=== PATIENT | female | born 1940 | race Caucasian/White ===

== ENCOUNTER 2016-12-30 11:43 | Emergency (ER) | payer MEDICARE, OTHER ==
[~2016-12-30] VITALS: Ht 160 cm; Wt 62.6 kg
[~2016-12-30 11:43] MED LIST: ALEN70TA3 PO; AMLO10TA4 PO; CLON0.1T PO; IBUP200T43 PO; METO50TA2 PO; OMEG-33 PO; QUIN40TA PO; WARF2TAB PO; WARF3TAB54 PO; WARF4TAB7 PO; decadron PO
[2016-12-30 12:05] VITALS: BP 105/65
--- NOTE | 2016-12-30 12:50 | RAD ---
Right foot, 3 views, 12/30/2016: History: Great toe pain There is mild spurring at the first MTP joint. No acute fracture or dislocation is identified. There is mild subcutaneous edema. IMPRESSION: No acute bony abnormality is detected.
[2016-12-30] MEDS ORDERED: HYDR-971 PO (13:11)
--- NOTE | 2016-12-30 13:11 | PHYS DOC ---
Past History Past Medical History: CAD Past Surgical History: Pacemaker Smoking: Non-smoker Alcohol Use: None Drug Use: None Adult General Chief Complaint Chief Complaint: FOOT INJURY PAIN HPI HPI Patient is a 76 year old female who presents with right foot pain. She states 2 days ago she felt sudden sharp pain in 1st metatarsal & toe while walking. She has pain with weight bearing. Reports mild swelling. Denies fevers, warmth. No previous fracture or injury. 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 Review of Systems Review of Systems Constitutional: Denies fever or chills Respiratory: Denies cough or shortness of breath Cardiovascular: Denies chest pain GI: Denies abdominal pain Musculoskeletal: Reports foot pain Integument: Denies rash Neurologic: Denies headache Allergies Allergies Allergies Coded Allergies Type Severity Reaction Last Updated Verified adhesive Allergy Intermediate 01/23/16 No aloe vera Allergy Intermediate 01/23/16 No Physical Exam Physical Exam Constitutional: Well developed, well nourished, no acute distress, non-toxic appearance. HENT: Normocephalic, atraumatic, bilateral external ears normal, oropharynx moist, nose normal. Eyes: conjunctiva normal, no discharge. Cardiovascular: no edema. Lungs & Thorax: no respiratory distress. Abdomen: nondistended. Skin: Warm, dry, no erythema, no rash. Extremities: Right foot with mild swelling to 1st metatarsal & toe with minimal overlying erythema, painful with palpation of metatarsal & entire toe, no ankle tenderness, normal ROM to ankle, dp/pt 2+, sensation intact to toes Neurologic: Alert and oriented X 3 Current Patient Data Vital Signs Vital Signs Date Time Temp Pulse Resp B/P (MAP) Pulse Ox O2 Delivery O2 Flow Rate FiO2 12/30/16 12:05 96.1 87 18 100 Room Air EKG EKG [] Radiology/Procedures Radiology/Procedures PROCEDURE: FOOT RIGHT 3V Right foot, 3 views, 12/30/2016: History: Great toe pain There is mild spurring at the first MTP joint. No acute fracture or dislocation is identified. There is mild subcutaneous edema. IMPRESSION: No acute bony abnormality is detected. DICTATED AND SIGNED BY: SARTHAK MARINELLI MD DATE: 12/30/16 1046 [] Course & Med Decision Making Course & Med Decision Making Pertinent Labs and Imaging studies reviewed. (See chart for details) Patient presents with foot pain. History suggests sprain, will recommend supportive management with rest, ice, elevation, supportive shoes. Gave norco for pain as she takes coumadin & has been told not to take NSAIDs & she is on her feet frequently. We discussed possibility that this could be podagra/gout & would be beneficial to follow up with primary care for further evaluation. At this time will not initiate gout-specific treatment based on history of injury. Return for signs of septic arthritis or otherwise worsening condition. Discharged home in stable condition. [] Dragon Disclaimer Dragon Disclaimer This chart was dictated in whole or in part using Voice Recognition software in a busy, high-work load, and often noisy Emergency Department environment. It may contain unintended and wholly unrecognized errors or omissions. Departure Departure: Impression: Primary Impression: Foot pain, right Disposition: 01 HOME, SELF-CARE Condition: STABLE Referrals: PCP,NO (PCP) Patient Instructions: Foot Sprain, Gout, [id number] Additional Instructions: You were seen in the emergency department today for foot pain. The x-ray did not show serious cause of symptoms. This is likely a strain but the location could also indicate gout. Rest, ice, elevate, take naproxen as needed for pain. Please follow-up with primary care physician in one to 2 weeks. Return to the emergency department for high fever, spreading redness or swelling, any otherwise worsening condition. Scripts Hydrocodone Bit/Acetaminophen (NORCO 5-325 TABLET) 1 Each Tablet 1-2 TAB PO Q4-6HRS Y for SEVERE PAIN, #10 TAB Prov: GUNNER THOMAS MD 12/30/16 GUNNER THOMAS MD Dec 30, 2016 13:11
== END 2016-12-30 13:21 | disposition home or self-care (01) ==
LOC: ER 11:43
DX: M79.671 Pain in right foot (principal); I25.10 Atherosclerotic heart disease of native coronary artery without angina pectoris; Z79.01 Long term (current) use of anticoagulants; Z95.0 Presence of cardiac pacemaker; Z88.8 Allergy status to other drugs, medicaments and biological substances; Z91.048 Other nonmedicinal substance allergy status; X58.XXXA Exposure to other specified factors, initial encounter; Y93.01 Activity, walking, marching and hiking; Y99.8 Other external cause status; Y92.89 Other specified places as the place of occurrence of the external cause
CPT/HCPCS: 73630; 99284

== ENCOUNTER → 2017-01-16 | Outpatient (CLI) | payer MEDICARE, OTHER ==
[2016-12-30 12:05] VITALS: BP 105/65
[~2017-01-16] MED LIST changes: +HYDR-971 PO
[2017-01-16 14:39] LABS: ALBUMIN 3.6 g/dL (3.4-5.0); ALBUMIN/GLOBULIN RATIO 0.8 (1.0-1.7); CALCIUM 10.1 mg/dL (8.5-10.1); CREATININE 1.5 mg/dL (0.6-1.0); GFR 33.7; POTASSIUM 4.5 mmol/L (3.5-5.1); TOTAL BILIRUBIN 1.2 mg/dL (0.2-1.0); TOTAL PROTEIN 7.9 g/dL (6.4-8.2)
== END | disposition home or self-care (01) ==
LOC: LAB 13:41
PROVIDERS: ATTEND Family Medicine
DX: E78.2 Mixed hyperlipidemia (principal)
CPT/HCPCS: 36415; 80053; 80061

== ENCOUNTER 2017-09-04 11:01 | Emergency (ER) | payer MEDICARE, OTHER ==
[~2017-09-04] VITALS: Ht 160 cm; Wt 64.0 kg
--- NOTE | 2017-09-04 11:30 | PHYS DOC ---
Past History Past Medical History: Asthma, CAD Past Surgical History: Pacemaker Smoking: Non-smoker Alcohol Use: None Drug Use: None Adult General Chief Complaint Chief Complaint: MECHANICAL FALL HPI HPI 77 year old female patient states she had an accidental fall while she was working her forearm to 4 days ago and landed on her left side without loss of consciousness. Patient complaining of pain in the weeks since her fall without other symptoms and states she thinks she has fractured rib. Patient states she doesn't have shortness of breath but she needs more time to do her chores. Patient states she had bruising her face without focal neuro deficit. Review of Systems Review of Systems Constitutional: Denies fever or chills [] Eyes: Denies change in visual acuity, redness, or eye pain [] HENT: Denies nasal congestion or sore throat [] Respiratory: Denies cough or shortness of breath [] Cardiovascular: No additional information not addressed in HPI [] GI: Denies abdominal pain, nausea, vomiting, bloody stools or diarrhea [] : Denies dysuria or hematuria [] Musculoskeletal: Denies back pain or joint pain [] Integument: Denies rash or skin lesions [] Neurologic: Denies headache, focal weakness or sensory changes [] Endocrine: Denies polyuria or polydipsia [] All other systems were reviewed and found to be within normal limits, except as documented in this note. Allergies Allergies Allergies Coded Allergies Type Severity Reaction Last Updated Verified adhesive Allergy Intermediate 01/23/16 No aloe vera Allergy Intermediate 01/23/16 No Physical Exam Physical Exam Constitutional: Well developed, well nourished, mild distress, non-toxic appearance. [] HENT: Normocephalic, ecchymosis in left side of face close to orbit oropharynx moist, no oral exudates, nose normal. [] Eyes: PERRLA, EOMI, conjunctiva normal, no discharge. [] Neck: Normal range of motion, no tenderness, supple, no stridor. [] Cardiovascular:Heart rate regular rhythm, no murmur [] Lungs & Thorax: Bilateral breath sounds clear to auscultation, mild ecchymosis in the anterior chest, tenderness in anterior left chest wall without [ subcutaneous emphysema or deformity] Abdomen: Bowel sounds normal, soft, no tenderness, no masses, no pulsatile masses. [] Skin: Warm, dry, no erythema, no rash. [] Back: No tenderness, no CVA tenderness. [] Extremities: No tenderness, no cyanosis, no clubbing, ROM intact, no edema. [] Neurologic: Alert and oriented X 3, normal motor function, normal sensory function, no focal deficits noted. [] Psychologic: Affect normal, judgement normal, mood normal. [] EKG EKG [] Radiology/Procedures Radiology/Procedures [] [place] [address] IMAGING REPORT Signed PATIENT: ALYSSIA LAWRENCE ACCOUNT: [id number] : 1940 LOCATION: ER AGE: 77 SEX: F EXAM STATUS: REG ER ORD. PHYSICIAN: YASEMIN CLARK MD REASON: fall PROCEDURE: RIBS LEFT AND PA CHEST PA view chest x-ray and two-view left rib detail series Indications: Fall and left rib pain. Findings: There are nondisplaced fractures of the lateral aspect of the left fourth and fifth and sixth ribs. No pneumothorax or pleural effusion is seen. Mild left lung base atelectasis is evident. Heart size is prominent. Pacemaker is evident. Mediastinum is unremarkable. IMPRESSION: Acute posttraumatic left rib cage fractures. DICTATED AND SIGNED BY: KAILA GREEN MD DATE: 09/04/17 1207 CC: VICK SWANSON MD; YASEMIN CLARK MD ~ [address] [address] IMAGING REPORT Signed PATIENT: ALYSSIA LAWRENCE ACCOUNT: [id number] : 1940 LOCATION: ER AGE: 77 SEX: F EXAM STATUS: REG ER ORD. PHYSICIAN: YASEMIN CLARK MD REASON: fall PROCEDURE: CT HEAD AND CERVICAL SPINE WO CT head and cervical spine without contrast 09/04/2017 Indication: Fall Comparison: CT head 02/19/2009 Technique: Multiple axial noncontrast CT images of the head were obtained from the skull base through the vertex. Multiple axial CT images of the cervical spine were obtained without intravenous contrast. Coronal and sagittal reformats are provided. Findings: Head: The ventricles, sulci and basal cisterns are prominent, compatible with generalized cerebral volume loss. There is low-attenuation in the periventricular white matter compatible with chronic small vessel ischemic changes. There is a remote lacunar infarct in the left caudate head. Briones-white matter differentiation is normal. There is no acute intracranial hemorrhage. There is no mass, mass effect or midline shift. Posterior fossa is within normal limits. Sellar and suprasellar cistern appear normal. Atherosclerotic calcifications are identified involving the cavernous segments of the internal carotid arteries. Orbits are normal in appearance. There is mild mucosal thickening involving the left maxillary sinus. Mastoid air cells are well aerated. Scalp and calvaria are normal. Cervical spine: There is minimal retrolisthesis of C5 on C6. The craniocervical junction is normal. The atlantoaxial articulation is normal. There is no acute fracture. Skull base is intact. The C1 Arches and dens are intact. There is disc height loss at C5-C6 and C6-C7. Anterior marginal osteophytosis is present at C5-C6 and C6-C7. There is moderate to advanced multilevel facet arthropathy. Areas moderate to advanced uncovertebral joint disease at C5-C6 and C6-C7. Findings result in moderate bilateral neural foraminal stenosis at these levels, exacerbated by posterior disc osteophyte complexes. There is mild spinal canal stenosis at C6-C7. The thyroid gland is minimally heterogeneous. No suspicious pulmonary findings are visualized. Impression: There is no acute intracranial hemorrhage. Moderate parenchymal volume loss with moderate chronic small vessel ischemic changes in the periventricular white matter. 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 Minimal retrolisthesis of C5 on C6, likely on a degenerative basis. No acute fracture of the cervical spine is visualized. PQRS Compliance Statement: One or more of the following individualized dose reduction techniques were utilized for this examination: 1. Automated exposure control 2. Adjustment of the mA and/or kV according to patient size 3. Use of iterative reconstruction technique DICTATED AND SIGNED BY: JOSUÉ SAAVEDRA MD DATE: 09/04/17 1207 CC: VICK SWANSON MD; YASEMIN CLARK MD ~ Course & Med Decision Making Course & Med Decision Making Pertinent Imaging studies reviewed. (See chart for details) Evaluation of patient in ER showed 77-year-old female patient with a fall several days ago and pain in left chest wall. Patient had tenderness of chest wall without emphysema. X-ray showed ribs# 4 and 5 and 6 nondisplaced fracture. Patient did not want to have pain medication in ER. CT CT head and cervical spine was unremarkable. incentive inspirometer was provided and patient instructed to take deep breaths and follow up with her primary care physician. discharge: I've spoken with the patient and/or caregivers. I've explained the patient's condition, diagnosis and treatment plan based on information available to me at this time. I've answered the patient's and/or caregivers questions and addressed any concerns. The patient and/or caregivers have a good understanding the patient's diagnosis, condition and treatment plan as can be expected at this point. Vital signs have been stabilized. The patient's condition is stable for discharge from the emergency department. The patient will pursue further outpatient evaluation with her primary care provider or other designated consulting physician as outlined in the discharge instructions. Patient and/or caregivers are agreeable to this plan of care and follow-up instructions have been explained in detail. The patient and/or caregivers have received these instructions in written format and expressed understanding of these discharge instructions. The patient and her caregivers are aware that if any significant change in condition or worsening of symptoms should prompt him to immediately return to this of the closest emergency department. If an emergent department is not readily available I would encourage him to call 911. [] Dragon Disclaimer Dragon Disclaimer This electronic medical record was generated, in whole or in part, using a voice recognition dictation system. Departure Departure: Impression: Primary Impression: Multiple fractures of ribs of left side Additional Impressions: Fall Facial contusion Disposition: 01 HOME, SELF-CARE Condition: LEFT WITHOUT BEING SEEN Referrals: VICK SWANSON MD (PCP) Patient Instructions: Incentive Spirometer, Rib Fracture Additional Instructions: Drink plenty of liquids Follow-up with your primary care physician in 3-5 days Return to ER if not getting better Scripts Hydrocodone Bit/Acetaminophen (NORCO 5-325 TABLET) 1 Each Tablet 1 TAB PO PRN Q6HRS Y for PAIN, #20 TAB 0 Refills Prov: YASEMIN CLARK MD 09/04/17 Problem Qualifiers YASEMIN CLARK MD Sep 04, 2017 11:30
--- NOTE | 2017-09-04 12:12 | RAD ---
CT head and cervical spine without contrast 09/04/2017 Indication: Fall Comparison: CT head 02/19/2009 Technique: Multiple axial noncontrast CT images of the head were obtained from the skull base through the vertex. Multiple axial CT images of the cervical spine were obtained without intravenous contrast. Coronal and sagittal reformats are provided. Findings: Head: The ventricles, sulci and basal cisterns are prominent, compatible with generalized cerebral volume loss. There is low-attenuation in the periventricular white matter compatible with chronic small vessel ischemic changes. There is a remote lacunar infarct in the left caudate head. Briones-white matter differentiation is normal. There is no acute intracranial hemorrhage. There is no mass, mass effect or midline shift. Posterior fossa is within normal limits. Sellar and suprasellar cistern appear normal. Atherosclerotic calcifications are identified involving the cavernous segments of the internal carotid arteries. Orbits are normal in appearance. There is mild mucosal thickening involving the left maxillary sinus. Mastoid air cells are well aerated. Scalp and calvaria are normal. Cervical spine: There is minimal retrolisthesis of C5 on C6. The craniocervical junction is normal. The atlantoaxial articulation is normal. There is no acute fracture. Skull base is intact. The C1 Arches and dens are intact. There is disc height loss at C5-C6 and C6-C7. Anterior marginal osteophytosis is present at C5-C6 and C6-C7. There is moderate to advanced multilevel facet arthropathy. Areas moderate to advanced uncovertebral joint disease at C5-C6 and C6-C7. Findings result in moderate bilateral neural foraminal stenosis at these levels, exacerbated by posterior disc osteophyte complexes. There is mild spinal canal stenosis at C6-C7. The thyroid gland is minimally heterogeneous. No suspicious pulmonary findings are visualized. Impression: There is no acute intracranial hemorrhage. Moderate parenchymal volume loss with moderate chronic small vessel ischemic changes in the periventricular white matter. 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 Minimal retrolisthesis of C5 on C6, likely on a degenerative basis. No acute fracture of the cervical spine is visualized. PQRS Compliance Statement: One or more of the following individualized dose reduction techniques were utilized for this examination: 1. Automated exposure control 2. Adjustment of the mA and/or kV according to patient size 3. Use of iterative reconstruction technique
--- NOTE | 2017-09-04 12:12 | RAD ---
PA view chest x-ray and two-view left rib detail series Indications: Fall and left rib pain. Findings: There are nondisplaced fractures of the lateral aspect of the left fourth and fifth and sixth ribs. No pneumothorax or pleural effusion is seen. Mild left lung base atelectasis is evident. Heart size is prominent. Pacemaker is evident. Mediastinum is unremarkable. IMPRESSION: Acute posttraumatic left rib cage fractures.
[2017-09-04] MEDS ORDERED: HYDR-971 PO (12:31)
[2017-09-04 12:45] VITALS: BP 122/59
== END 2017-09-04 12:55 | disposition home or self-care (01) ==
LOC: ER 11:01
DX: S22.42XA Multiple fractures of ribs, left side, initial encounter for closed fracture (principal); S00.83XA Contusion of other part of head, initial encounter; J45.909 Unspecified asthma, uncomplicated; I25.10 Atherosclerotic heart disease of native coronary artery without angina pectoris; Z95.0 Presence of cardiac pacemaker; Z88.8 Allergy status to other drugs, medicaments and biological substances; W19.XXXA Unspecified fall, initial encounter; Y93.89 Activity, other specified; Y99.8 Other external cause status; Y92.89 Other specified places as the place of occurrence of the external cause
CPT/HCPCS: 70450; 71101; 72125; 99284; G0238

== ENCOUNTER → 2017-09-04 | Outpatient (CLI) | payer MEDICARE, OTHER ==
[~2017-09-04] MED LIST changes: -IBUP200T43 PO; +IBUP200T44 PO; -METO50TA2 PO; +METO50TA6 PO
--- NOTE | 2017-09-04 14:10 | RAD ---
DATE: September 04, 2017 EXAM: MAMMO RINA SCREENING BILATERAL HISTORY: Screening study COMPARISON: August 28, 2016 This study was interpreted with the benefit of Computerized Aided Detection (CAD). 2-D digital mammographic views of both breasts were performed in the CC and MLO projections. 3-D digital tomosynthesis images of both breasts were performed in the CC and MLO projections and reviewed on a computer workstation. FINDINGS: The breast parenchyma is replaced with adipose tissue. There are no dominant suspicious masses, suspicious microcalcifications or evidence of architectural distortion. IMPRESSION: No mammographic indicators for malignancy. BI-RADS CATEGORY: 1 NEGATIVE RECOMMENDED FOLLOW-UP: 12M 12 MONTH FOLLOW-UP PQRS compliance statement: Patient information was entered into a reminder system with a target due date September 05, 2018 for the next mammogram. Mammography is a sensitive method for finding small breast cancers, but it does not detect them all and is not a substitute for careful clinical examination. A negative mammogram does not negate a clinically suspicious finding and should not result in delay in biopsying a clinically suspicious abnormality. "Our facility is accredited by the [employer] Mammography Program." The patient's breast density may affect the ability of mammography to detect breast cancer. There are 4 categories of breast density, A, B, C and D. Breast density A means that most of the breast tissue is replaced with adipose tissue and therefore is not dense. Breast density B means that the breast tissue is mildly dense and scattered. Breast density C means that the breast tissue is heterogeneously dense. Breast density D means that the breast tissue is very dense. Breast densities especially C and D may decrease the sensitivity of mammography to detect breast cancer. Therefore, the patient may benefit from 3-D breast mammography (3D breast tomography) as a part of their screening mammogram. Insurance may or may not pay for this additional imaging. The patient's breast density based on today's mammogram is category A.
== END | disposition home or self-care (01) ==
LOC: MAMMO 10:38
PROVIDERS: ATTEND Family Medicine
DX: Z12.31 Encounter for screening mammogram for malignant neoplasm of breast (principal); I11.0 Hypertensive heart disease with heart failure; I50.33 Acute on chronic diastolic (congestive) heart failure; Z79.01 Long term (current) use of anticoagulants
CPT/HCPCS: 77063; 77067

== ENCOUNTER 2017-11-06 13:49 | Emergency (ER) | payer MEDICARE, OTHER ==
[2017-11-06] MEDS ORDERED: BUPIVACAINE MPF 0.5% 30 ML VIAL. SQ ONE (14:00)
--- NOTE | 2017-11-06 14:04 | PHYS DOC ---
Past History Past Medical History: A-Fib, Asthma, CAD Past Surgical History: Pacemaker Smoking: Non-smoker Alcohol Use: None Drug Use: None Adult General Chief Complaint Chief Complaint: TOE PROBLEM HPI HPI Patient is a 77-year-old female presents to the emergency department for evaluation. She states that the distal one third of her right great toenail has almost completely fallen off and it is causing her pain. She denies any definite injury and is uncertain how the toenail became partially avulsed. She denies any falls or injuries. She denies any other painful areas. She denies any numbness or weakness. She does take warfarin for atrial fibrillation, but has had no bleeding at the site. Palpation of the affected area worsens her pain. There are no alleviating factors to her symptoms. Review of Systems Review of Systems Constitutional: Denies fever or chills [] Cardiovascular: No additional information not addressed in HPI [] GI: Denies abdominal pain, nausea, vomiting, bloody stools or diarrhea [] : Denies dysuria or hematuria [] Musculoskeletal: Denies back pain or joint pain [] Skin: Denies any rashes. Neurologic: Denies numbness or focal weakness Allergies Allergies Allergies Coded Allergies Type Severity Reaction Last Updated Verified adhesive Allergy Intermediate 01/23/16 No aloe vera Allergy Intermediate 01/23/16 No Physical Exam Physical Exam PHYSICAL EXAM: HEENT: Atruamatic NECK: Supple, normal ROM, non-tender. CARDIAC: Regular Rate and Rhythm LUNGS: Clear Bilaterally EXTREMITIES: There is intervals complete transverse avulsion of the distal third of the right great toenail, without any bleeding or apparent trauma to the remaining part of the toe. The area is slightly tender to touch. The medial quarter of the nail remains attached distally. There are no other obvious injuries and the remainder of the toe, and other digits are unremarkable. Distal capillary refill, sensation, and motor function are intact. EKG EKG [] Radiology/Procedures Radiology/Procedures [] Course & Med Decision Making Course & Med Decision Making ER physician procedure note: A digital block was placed on the right great toe using 4 mL of 0.5% bupivacaine. This was chosen for ongoing pain management and control. The remainder of the hanging toenail was removed, the nail bed appeared unremarkable. There is no active bleeding. The patient tolerated the procedure well. Patient today is that the remainder of her toenails be trimmed, none of them appear to be injured or damaged, although several are a few millimeters beyond the tip of the nailbed. There is no significant nail enlargement present. The patient was given resources for podiatry follow-up for definitive management of her toenails. Dragon Disclaimer Dragon Disclaimer This electronic medical record was generated, in whole or in part, using a voice recognition dictation system. Departure Departure: Impression: Primary Impression: Toenail avulsion Disposition: 01 HOME, SELF-CARE Condition: STABLE Referrals: VICK SWANSON MD (PCP) Patient Instructions: Fingernail or Toenail Loss, Toenail Removal Additional Instructions: Apply topical antibiotic ointment to the nailbed, and cover with a sterile bandage. JERARDO APPLE MD November 06, 2017 14:04
[2017-11-06 15:02] VITALS: BP 141/87
== END 2017-11-06 14:38 | disposition home or self-care (01) ==
LOC: ER 13:49
DX: S91.201A Unspecified open wound of right great toe with damage to nail, initial encounter (principal); I48.91 Unspecified atrial fibrillation; J45.909 Unspecified asthma, uncomplicated; I25.10 Atherosclerotic heart disease of native coronary artery without angina pectoris; Z95.0 Presence of cardiac pacemaker; Z79.01 Long term (current) use of anticoagulants; Z88.8 Allergy status to other drugs, medicaments and biological substances; Z91.048 Other nonmedicinal substance allergy status; X58.XXXA Exposure to other specified factors, initial encounter; Y93.89 Activity, other specified; Y99.8 Other external cause status; Y92.89 Other specified places as the place of occurrence of the external cause
CPT/HCPCS: 11730; 99284; J3490

== ENCOUNTER → 2017-11-06 | Outpatient (CLI) | payer MEDICARE, OTHER ==
[~2017-11-06] MED LIST changes: +WARF4TAB64 PO; -WARF4TAB7 PO
[2017-11-06 13:27] LABS: ALBUMIN 3.6 g/dL (3.4-5.0); ALBUMIN/GLOBULIN RATIO 0.8 (1.0-1.7); CREATININE 1.3 mg/dL (0.6-1.0); GFR 39.6; POTASSIUM 3.7 mmol/L (3.5-5.1); TOTAL BILIRUBIN 0.9 mg/dL (0.2-1.0); TOTAL PROTEIN 8.1 g/dL (6.4-8.2)
== END | disposition home or self-care (01) ==
LOC: LAB 12:19
PROVIDERS: ATTEND Family Medicine
DX: R94.6 Abnormal results of thyroid function studies (principal); R79.89 Other specified abnormal findings of blood chemistry
CPT/HCPCS: 36415; 80053; 84443

== ENCOUNTER 2018-02-17 15:45 | Emergency (ER) | payer MEDICARE, OTHER ==
[~2018-02-17] VITALS: Ht 160 cm; Wt 62.1 kg
--- NOTE | 2018-02-17 16:14 | PHYS DOC ---
Past History Past Medical History: A-Fib, Asthma, CAD Past Surgical History: Pacemaker Smoking: Non-smoker Alcohol Use: None Drug Use: None Adult General Chief Complaint Chief Complaint: NAUSEA/VOMITING/[facility] HPI Patient is a 77-year-old female who presents for evaluation of 3 episodes of nausea and vomiting. She states that she went to a restaurant to eat with her family and before she started eating had to go to the restroom. She says that while in the restroom she had 3 episodes of vomiting. She states that she felt fine when she got to the restaurant. Upon arrival emergency department she has no complaints and states that she is feeling better. She arrived via EMS. No family is present at this time. She denies fevers or chills, abdominal pain, diarrhea, chest pain or shortness of breath, back or flank pain, urinary complaints, headache, dizziness or syncope. Review of Systems Review of Systems Constitutional: Denies fever or chills [] Eyes: Denies change in visual acuity, redness, or eye pain [] HENT: Denies nasal congestion or sore throat [] Respiratory: Denies cough or shortness of breath [] Cardiovascular: No additional information not addressed in HPI [] GI: Denies abdominal pain, bloody stools or diarrhea [] +n/v x 3 : Denies dysuria or hematuria [] Musculoskeletal: Denies back pain or joint pain [] Integument: Denies rash or skin lesions [] Neurologic: Denies headache, focal weakness or sensory changes [] Endocrine: Denies polyuria or polydipsia [] All other systems were reviewed and found to be within normal limits, except as documented in this note. Allergies Allergies Allergies Coded Allergies Type Severity Reaction Last Updated Verified adhesive Allergy Intermediate 01/23/16 No aloe vera Allergy Intermediate 01/23/16 No Physical Exam Physical Exam Constitutional: Well developed, well nourished, no acute distress, non-toxic appearance. [] HENT: Normocephalic, atraumatic, bilateral external ears normal, oropharynx moist, no oral exudates, nose normal. [] Eyes: PERRLA, EOMI, conjunctiva normal, no discharge. [] Neck: Normal range of motion, no tenderness, supple, no stridor. [] Cardiovascular:Heart rate regular rhythm, no murmur [] Lungs & Thorax: Bilateral breath sounds clear to auscultation [] Abdomen: Bowel sounds normal, soft, no tenderness, no masses, no pulsatile masses. [] Skin: Warm, dry, no erythema, no rash. [] Back: No tenderness, no CVA tenderness. [] Extremities: No tenderness, no cyanosis, no clubbing, ROM intact, no edema. [] Neurologic: Alert and oriented X 3, normal motor function, normal sensory function, no focal deficits noted. [] Psychologic: Affect normal, judgement normal, mood normal. [] Current Patient Data Vital Signs Vital Signs Date Time Temp Pulse Resp B/P (MAP) Pulse Ox O2 Delivery O2 Flow Rate FiO2 02/17/18 15:45 97.8 86 16 97 Room Air EKG EKG Normal sinus rhythm, rate of 64, ischemic findings noted, no STEMI Radiology/Procedures Radiology/Procedures [] Course & Med Decision Making Course & Med Decision Making Pertinent Labs and Imaging studies reviewed. (See chart for details) @1745 - The initial IV attempt was unsuccessful for obtaining blood. However the patient does have an IV and has been receiving some IV fluids and states that she is feeling even better than when she first arrived. She still tells me that she has no complaints. I did offer to have an additional attempt made to obtain her blood that she declines. She states that she is feeling fine and wants to go home. She would like a prescription for Zofran to go home with. Advised the patient to follow up with her PCP within the next 1-2 days or to return to the Emergency Department immediately for any new or worsening symptoms or if she changes her mind and would like labs to be performed. Dragon Disclaimer Dragon Disclaimer This electronic medical record was generated, in whole or in part, using a voice recognition dictation system. Departure Departure: Impression: Primary Impression: Nausea & vomiting Disposition: 01 HOME, SELF-CARE Condition: STABLE Referrals: VICK SWANSON MD (PCP) Patient Instructions: Nausea and Vomiting Additional Instructions: Take the prescribed Zofran for nausea as needed, and as directed. Return to the ER for new or worsening symptoms. Follow-up with your doctor within the next 1- 2 days. Scripts Ondansetron (ZOFRAN ODT) 4 Mg Tab.rapdis 1 TAB SL Q8HRS, #20 TAB Prov: ELVIS DE LA TORRE DO 02/17/18 ELVIS DE LA TORRE DO Feb 17, 2018 16:14
[2018-02-17] MEDS: IV NORMAL SALINE 1,000ML 1,000 ML IV ONE (17:19)
[2018-02-17] MEDS: ONDANSETRON PF 4 MG/2 ML VIAL. IV ONE (17:22)
[2018-02-17] MEDS ORDERED: ONDA4TAB10 SL (17:48)
[2018-02-17 17:50] VITALS: BP 145/76
== END 2018-02-17 18:01 | disposition home or self-care (01) ==
LOC: ER 15:45
DX: R11.2 Nausea with vomiting, unspecified (principal); I48.91 Unspecified atrial fibrillation; J45.909 Unspecified asthma, uncomplicated; I25.10 Atherosclerotic heart disease of native coronary artery without angina pectoris; Z95.0 Presence of cardiac pacemaker; Z88.8 Allergy status to other drugs, medicaments and biological substances
CPT/HCPCS: 96361; 96374; J2405; 99284-25; J7030

== ENCOUNTER → 2018-02-24 | Outpatient (CLI) | payer MEDICARE, OTHER ==
[2018-02-17 17:50] VITALS: BP 145/76
[~2018-02-24] MED LIST changes: +ONDA4TAB10 SL
--- NOTE | 2018-02-24 14:36 | RAD ---
CT Abdomen and Pelvis without contrast History: Bilious vomiting, anorexia Technique: Noncontrast CT imaging was performed of the abdomen and pelvis. Multiplanar images are reviewed. Exposure: One or more of the following individualized dose reduction techniques were utilized for this examination: 1. Automated exposure control 2. Adjustment of the mA and/or kV according to patient size 3. Use of iterative reconstruction technique. Comparison: September 05, 2010 Findings: Lead from electronic cardiac device is noted. Heart is enlarged. There is no pleural fluid at the visualized lung bases. Accurate evaluation of the abdominal visceral organs is limited without intravenous contrast, no obvious focal abnormality of the liver, pancreas, spleen. Gallbladder is present without obvious intraluminal abnormality by CT. There is no adrenal nodularity. There is no hydronephrosis or renal calculus. Accurate evaluation of bowel is limited without oral contrast. There is no significant bowel dilatation, free air, free air, or fluid. There is mild sigmoid diverticulosis. Normal appendix is visualized. There is multilevel lumbar facet degenerative change. There has been vertebroplasty at L3. There is superior L2 endplate concavity although probably older, associated Schmorl's node. There is mild lumbar levoscoliosis. There is multilevel lumbar interbody calcification. There are several small retroperitoneal nodes. Impression: 1. No acute abnormality is identified. Electronically signed by: Bc Molina MD (02/24/2018 2:33 PM) [id number]
== END | disposition home or self-care (01) ==
LOC: CT 13:28
PROVIDERS: ATTEND Nurse Practitioner Family
DX: R59.0 Localized enlarged lymph nodes (principal); M47.896 Other spondylosis, lumbar region; I11.0 Hypertensive heart disease with heart failure; I50.9 Heart failure, unspecified; E78.5 Hyperlipidemia, unspecified; I48.2 Chronic atrial fibrillation; I25.10 Atherosclerotic heart disease of native coronary artery without angina pectoris; Z91.81 History of falling; Z90.710 Acquired absence of both cervix and uterus; Z90.722 Acquired absence of ovaries, bilateral
CPT/HCPCS: 74176

== ENCOUNTER 2018-03-09 11:40 | Inpatient (IN) | payer MEDICARE, OTHER ==
[~2018-03-09] VITALS: Ht 160 cm; Wt 59.4 kg
[2018-03-09] MEDS ORDERED: IV NORMAL SALINE 500ML 500 ML IV ONE (12:30)
[2018-03-09] MEDS ORDERED: ONDANSETRON PF 4 MG/2 ML VIAL. IV ONE (12:30)
--- NOTE | 2018-03-09 12:30 | EKG ---
[address] [address] Test Date: 2018-03-09 Test Time: 12:26:10 Pat Name: ALYSSIA LAWRENCE Department: Room: Gender: F [employer]: : 1940 Requested By: TRINY PAINTING Order Number: [id number] Reading MD: Mendez Enriquez MD Measurements Intervals Guy Rate: 66 P: CO: QRS: -89 QRSD: 156 T: 96 QT: 500 QTc: 526 Interpretive Statements V-PACED Electronically Signed On 03-10-2018 13:48:10 CDT by Mendez Enriquez MD
--- NOTE | 2018-03-09 13:08 | PHYS DOC ---
Past History Past Medical History: A-Fib, Asthma, CAD Past Surgical History: Hysterectomy, Pacemaker Smoking: Non-smoker Alcohol Use: None Drug Use: None Adult General Chief Complaint Chief Complaint: nausea with vomiting HPI HPI 77-year-old female presenting the emergency department today with nausea and vomiting. This is been going on for approximately 2 weeks. She has been seen by GI who referred her to [facility]. She denies any abdominal distention. She reports normal bowel movements. She feels generally weak and tired. She denies any pain at rest but reports it hurts when she presses on her abdomen. Past medical history: History of coronary artery disease, asthma and A. fib. Surgical history pacemaker and hysterectomy Review of systems is negative for chest pain shortness of breath fevers chills headache. Positive for nausea with nonbilious nonbloody emesis. She denies blood in her stools. All other review of systems is negative unless otherwise noted in history of present illness. ED course: 69-year-old female presenting the emergency department today with nausea and vomiting and malaise. On arrival she is afebrile with normal heart rate. On examination she is well-appearing. Lungs are clear his bilaterally. Abdomen is soft and she reports mild tenderness palpation generally throughout the abdomen without any distention on examination. No rebound tenderness or guarding. Negative McBurney's point. Negative Napoles sign. Lactic acid is quite elevated. No sign of infection here. Afebrile. CT the abdomen pelvis is not suggestive of acute pathology. Urinalysis shows no sign of infection. IV fluids given. BUN and creatinine elevated. Lactic acid came back here in the emergency department. On reexamination she continues to be well-appearing. Given the elevated lactic acid, we will administer broad-spectrum IV antibiotics. I spoke with Dr. Martinez excepts the patient for admission to the hospital. basic bridge orders placed. Review of Systems Review of Systems SEE ABOVE. Current Medications Current Medications Current Medications Medications (Trade) Dose Ordered Sig/Galen Start Time Stop Time Status Last Admin Dose Admin Ondansetron HCl (Zofran) 4 mg 1X ONCE 03/09/18 12:30 03/09/18 12:33 DC 03/09/18 12:57 4 MG Sodium Chloride 500 ml @ 0 mls/hr 1X ONCE 03/09/18 12:30 9/10/18 12:33 DC 03/09/18 12:51 500 MLS/HR Allergies Allergies Allergies Coded Allergies Type Severity Reaction Last Updated Verified adhesive Allergy Intermediate 01/23/16 No aloe vera Allergy Intermediate 01/23/16 No Physical Exam Physical Exam Constitutional: Well developed, well nourished, no acute distress, non-toxic appearance. [] HENT: Normocephalic, atraumatic, bilateral external ears normal, oropharynx moist, no oral exudates, nose normal. [] Eyes: PERRLA, EOMI, conjunctiva normal, no discharge. [] Neck: Normal range of motion, no tenderness, supple, no stridor. [] Cardiovascular:Heart rate regular rhythm, no murmur [] Lungs & Thorax: Bilateral breath sounds clear to auscultation [] Abdomen: Bowel sounds normal, soft, no tenderness, no masses, no pulsatile masses. [] Skin: Warm, dry, no erythema, no rash. [] Back: No tenderness, no CVA tenderness. [] Extremities: No tenderness, no cyanosis, no clubbing, ROM intact, no edema. [] Neurologic: Alert and oriented X 3, normal motor function, normal sensory function, no focal deficits noted. [] Psychologic: Affect normal, judgement normal, mood normal. [] Current Patient Data Vital Signs Vital Signs Date Time Temp Pulse Resp B/P (MAP) Pulse Ox O2 Delivery O2 Flow Rate FiO2 03/09/18 12:00 96.1 70 18 99 Room Air EKG EKG [] Radiology/Procedures Radiology/Procedures [] Course & Med Decision Making Course & Med Decision Making Pertinent Labs and Imaging studies reviewed. (See chart for details) [] Dragon Disclaimer Dragon Disclaimer This electronic medical record was generated, in whole or in part, using a voice recognition dictation system. Departure Departure: Impression: Primary Impression: Nausea & vomiting Additional Impressions: Lactic acidosis Elevated serum creatinine Disposition: ADMITTED INPATIENT Admitting Physician: Other (silvio) Condition: STABLE Referrals: VICK SWANSON MD (PCP) Problem Qualifiers TRINY PAINTING MD Mar 09, 2018 13:08
[2018-03-09] MEDS ORDERED: IOHEXOL 300 MG/ML 75 ML VIAL. IV ONE (13:15)
[2018-03-09 13:37] LABS: BASO # 0.1 x10^3/uL (0.0-0.2); BASO % 1 % (0-3); EOS % 0 % (0-3); HEMATOCRIT 44.3 % (36.0-47.0); HEMOGLOBIN 14.9 g/dL (12.0-15.5); LYMPH # 1.1 x10^3/uL (1.0-4.8); LYMPH % 15 % (24-48); MEAN CORPUSCULAR HEMOGLOBIN 31 pg (25-35); MEAN CORPUSCULAR HGB CONC 34 g/dL (31-37); MEAN CORPUSCULAR VOLUME 93 fL (79-100); MONO # 0.6 x10^3/uL (0.0-1.1); MONO % 8 % (0-9); NEUT # 5.6 x10^3uL (1.8-7.7); NEUT % 76 % (31-73); PLATELET COUNT 181 x10^3/uL (140-400); RED BLOOD COUNT 4.74 x10^6/uL (3.50-5.40); RED CELL DISTRIBUTION WIDTH 13.1 % (11.5-14.5); WHITE BLOOD COUNT 7.4 x10^3/uL (4.0-11.0)
[2018-03-09 14:00] LABS: ALBUMIN 3.3 g/dL (3.4-5.0); CALCIUM 10.5 mg/dL (8.5-10.1); CREATININE 1.7 mg/dL (0.6-1.0); DIRECT BILIRUBIN 0.2 mg/dL (0.0-0.2); GFR 29.1; POTASSIUM 3.9 mmol/L (3.5-5.1); TOTAL BILIRUBIN 1.3 mg/dL (0.2-1.0); TOTAL PROTEIN 6.9 g/dL (6.4-8.2)
--- NOTE | 2018-03-09 14:29 | RAD ---
PQRS Compliance Statement: One or more of the following individualized dose reduction techniques were utilized for this examination: 1. Automated exposure control 2. Adjustment of the mA and/or kV according to patient size 3. Use of iterative reconstruction technique CT abdomen/pelvis without contrast 03/09/2018 2:05 PM INDICATION: Nausea and vomiting for 2 weeks. COMPARISON: CT abdomen/pelvis February 24, 2018 TECHNIQUE: Multiple axial CT images of the abdomen and pelvis were obtained without intravenous contrast. Coronal and sagittal reformats are provided. FINDINGS: Mild chronic interstitial changes are noted at the lung bases. Heart is enlarged with partial profiling of pacer wires. Evaluation of the solid abdominal viscera is limited by lack of intravenous contrast. There is a 15 mm simple cyst in the lateral left hepatic lobe. No suspicious hepatic lesions are identified. The spleen, bilateral adrenal glands, pancreas and gallbladder are normal in appearance. Abdominal aorta is normal in course and caliber with moderate atherosclerotic changes. There are no pathologically enlarged lymph nodes in abdomen or pelvis. There is a right inguinal lymph node which appears mildly rounded measuring 5 mm, likely reactive. There is no free fluid or free intraperitoneal air. The kidneys are relatively symmetric in appearance. There is no suspicious renal mass within the limitations of a noncontrast examination. There is no hydronephrosis. There are no calculi within the kidneys, ureters or urinary bladder. There is retained oral contrast within the large bowel. Appendix is normal. No evidence for bowel obstruction or inflammation. There are no dilated small or large bowel loops. There is mild sigmoid diverticulosis. Urinary bladder is within normal limits given degree of distention. No suspicious pelvic masses are identified. There are no suspicious osseous lesions. Spinal augmentation changes are identified at L3. Similar height loss of L2 secondary to Schmorl's node. IMPRESSION: No acute abnormality is identified in abdomen and pelvis. Specifically, no evidence for obstructive uropathy. Electronically signed by: Elza Black MD (03/09/2018 2:27 PM) [id number]
[2018-03-09] MEDS ORDERED: IV NORMAL SALINE 1,000ML 1,000 ML IV ONE (14:45)
[2018-03-09 16:29] LABS: BILIRUBIN,URINE NEG (NEG); CLARITY,URINE CLEAR; COLOR,URINE YELLOW; GLUCOSE,URINE NEG (NEG); NITRITE,URINE NEG (NEG); UROBILINOGEN,URINE 0.2 mg/dL (0.2 mg/dL)
[2018-03-09 16:30] LABS: BACTERIA,URINE FEW /HPF (0-FEW); HYALINE CASTS, URINE FEW /HPF; RBC,URINE OCC /HPF (0-2); SQUAMOUS EPITHELIAL CELL,UR FEW /LPF; WBC,URINE OCC /HPF (0-4)
[2018-03-09] MEDS ORDERED: PIP/TAZO PER PHARMACY MC PRN (17:30)
[2018-03-09] MEDS ORDERED: ONDANSETRON PF 4 MG/2 ML VIAL. IV PRN (17:30)
[2018-03-09] MEDS ORDERED: MORPHINE SULFATE 2 MG/ML DISP.SYRIN. IV PRN (17:30)
[2018-03-09] MEDS: PIPERACILLIN/TAZOBACTAM 2.25 GM in IV NORMAL SALINE 50ML 50 ML IV SCH (18:28)
[2018-03-09] MEDS: IV NORMAL SALINE 1,000ML 1,000 ML IV SCH (18:29)
[2018-03-09 18:53] VITALS: BP 147/93
[2018-03-09 22:49] VITALS: BP 167/79
[2018-03-09] MEDS ORDERED: LEVO50TA5 PO (23:50)
[2018-03-09] MEDS ORDERED: CELE200C PO (23:50)
[2018-03-09] MEDS ORDERED: FAMO20TA5 PO (23:50)
[2018-03-09] MEDS ORDERED: DONE5TAB7 PO (23:50)
[2018-03-09] MEDS ORDERED: NITR100C PO (23:50)
[2018-03-09] MEDS ORDERED: ALEN70TA5 PO (23:50)
[2018-03-09] MEDS ORDERED: OMEG-126 PO (23:50)
[2018-03-10] MEDS: PIPERACILLIN/TAZOBACTAM 2.25 GM in IV NORMAL SALINE 50ML 50 ML IV SCH ×3 (01:21→12:10)
[2018-03-10] MEDS: IV NORMAL SALINE 1,000ML 1,000 ML IV SCH ×2 (05:30→13:30)
[2018-03-10 05:52] VITALS: BP 154/93
[2018-03-10 06:40] LABS: BASO # 0.1 x10^3/uL (0.0-0.2); BASO % 1 % (0-3); EOS # 0.2 x10^3/uL (0.0-0.7); EOS % 3 % (0-3); HEMATOCRIT 41.9 % (36.0-47.0); HEMOGLOBIN 14.2 g/dL (12.0-15.5); LYMPH # 1.6 x10^3/uL (1.0-4.8); LYMPH % 28 % (24-48); MEAN CORPUSCULAR HEMOGLOBIN 31 pg (25-35); MEAN CORPUSCULAR HGB CONC 34 g/dL (31-37); MEAN CORPUSCULAR VOLUME 92 fL (79-100); MONO # 0.5 x10^3/uL (0.0-1.1); MONO % 10 % (0-9); NEUT # 3.3 x10^3uL (1.8-7.7); NEUT % 58 % (31-73); PLATELET COUNT 179 x10^3/uL (140-400); RED BLOOD COUNT 4.56 x10^6/uL (3.50-5.40); WHITE BLOOD COUNT 5.7 x10^3/uL (4.0-11.0)
[2018-03-10 06:47] LABS: CALCIUM 9.8 mg/dL (8.5-10.1); CREATININE 1.3 mg/dL (0.6-1.0); GFR 39.6
[2018-03-10 06:48] LABS: POTASSIUM 2.9 mmol/L (3.5-5.1)
[2018-03-10] MEDS: MAGNESIUM SULFATE 1GM 100 ML IV SCH ×2 (08:53→09:54)
[2018-03-10] MEDS: POTASSIUM CHLORIDE 20 MEQ TABLET.ER. PO SCH ×2 (08:54→09:51)
[2018-03-10 10:47] VITALS: BP 140/76
[2018-03-10 13:09] LABS: CALCIUM 9.5 mg/dL (8.5-10.1); CREATININE 1.2 mg/dL (0.6-1.0); GFR 43.4; MAGNESIUM 2.1 mg/dL (1.8-2.4); POTASSIUM 3.4 mmol/L (3.5-5.1)
--- NOTE | 2018-03-10 13:53 | PDOC1 ---
History of Present Illness Reason for Visit: This is a short stay summary, history and physical. History of Present Illness 77-year-old female brought to the emergency department again with vomiting and dehydration. Patient states that she was at physical therapy yesterday when she had sudden onset of nausea and vomiting. Vomiting resolved after receiving Zofran in ED. She says for the past 3-4 weeks she's had bouts of nausea and vomiting every other day after taking her morning medications. She's tried taking her medications with food and spacing them out without improvement. She denies any associated abdominal discomfort, fever chills or sweats. She's had normal bowel movements daily for the past 3 days. She denies any travel or bad food exposure. I find her today lying in bed after having eaten approximately 50% of her full liquid lunch in no apparent distress, no abdominal pain nausea or vomiting. 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 She admits to decreased appetite recently. Other than some mild abdominal muscle soreness from the vomiting she denies any complaints. Vital signs were stable in the emergency department, EKG revealed a paced rhythm 66 bpm. CBC unremarkable, other pertinent labs: INR 1.9. Initial BUN/creatinine 22, creatinine 1.7, total bilirubin 1.3, lipase 356, troponins are 0.026, lactic acid 5.1, magnesium 1.3. With gentle hydration and electrolyte protocol BUN has improved to 22, creatinine 1.2, lactic acid 1.3, magnesium 2.1. She was treated for similar symptoms on February 17 at the [facility] emergency department with fluids and antiemetics and discharged home. She was inpatient February 09- at [facility] after suffering a fall with head injury and questionable seizure activity. CT of the head was negative at that time she is on Coumadin for atrial fibrillation. She was also inpatient at [facility] February 27 through February 28 with nausea and vomiting, acidosis, electrolyte abnormalities and renal insufficiency. Past medical history: Atrial fibrillation, congestive heart failure, hypertension, hyperlipidemia, asthma, dementia Surgical history: Pacemaker, tonsillectomy, hysterectomy Social history: Patient lives alone denies alcohol tobacco or illicit substances Chief Complaint: NAUSEA/VOMITING/DIARRHEA Allergies: Coded Allergies: adhesive (Unverified Allergy, Intermediate, 01/23/16) aloe vera (Unverified Allergy, Intermediate, 01/23/16) Review of Systems Review Of Systems Fourteen system , review of systems has been reviewed. See HPI for pertinent positives and negative responses, other herrmann all other systems are negative, non pertinent or non contributory Medications Current Medications Sodium Chloride 500 ml @ 0 mls/hr 1X ONCE IV Last administered on 03/09/18at 12 :51; Start 03/09/18 at 12:30; Stop 03/09/18 at 12:33; Status DC Ondansetron HCl (Zofran) 4 mg 1X ONCE IV Last administered on 03/09/18at 12:57 ; Start 03/09/18 at 12:30; Stop 03/09/18 at 12:33; Status DC Iohexol (Omnipaque 300 Mg/ml) 75 ml 1X ONCE IV ; Start 03/09/18 at 13:15; Stop 03/09/18 at 13:22; Status DC Sodium Chloride 1,000 ml @ 1,000 mls/hr 1X ONCE IV Last administered on at 15:06; Start 03/09/18 at 14:45; Stop 03/09/18 at 15:44; Status DC Piperacillin Sod/ Tazobactam Sod (Zosyn Per Pharmacy) 1 each PRN DAILY PRN MC SEE COMMENTS; Start 03/09/18 at 17:30 Ondansetron HCl (Zofran) 4 mg PRN Q4HRS PRN IV NAUSEA/VOMITING; Start 03/09/18 at 17:30; Stop 03/10/18 at 17:29 Morphine Sulfate (Morphine 2mg Syringe) 2 mg PRN Q2HR PRN IV PAIN; Start at 17:30; Stop 03/10/18 at 17:29 Sodium Chloride 1,000 ml @ 100 mls/hr Q10H IV Last administered on 03/10/18at 05:30; Start 03/09/18 at 17:30; Stop 03/10/18 at 17:29 Piperacillin Sod/ Tazobactam Sod 2.25 gm/Sodium Chloride 50 ml @ 100 mls/hr Q6HRS IV Last administered on 03/10/18at 12:10; Start 03/09/18 at 18:00 Potassium Chloride (Klor-Con) 40 meq Q2H PO Last administered on 03/10/18at 09: 51; Start 03/10/18 at 08:00; Stop 03/10/18 at 10:01; Status DC Magnesium Sulfate 100 ml @ 100 mls/hr Q1H IV Last administered on 03/10/18at 09 :54; Start 03/10/18 at 08:30; Stop 03/10/18 at 10:29; Status DC Lactobacillus Rhamnosus (Culturelle) 1 cap BID PO ; Start 03/10/18 at 21:00 Active Scripts Active Reported Celebrex (Celecoxib) 200 Mg Capsule 1 Cap PO DAILY Alendronate Sodium 70 Mg Tablet 1 Tab PO WEEKLY Donepezil Hcl 5 Mg Tablet 1 Tab PO DAILY Famotidine 20 Mg Tablet 1 Tab PO BID Levothyroxine Sodium 50 Mcg Tablet 1 Tab PO DAILY Nitrofurantoin (Nitrofurantoin Macrocrystal) 100 Mg Capsule 100 Mg PO DAILY Hm Fish Oil 1200 mg Softgel ([place]-3 Fatty Acids/Fish Oil) 1 Each Capsule 1 Each PO Coumadin (Warfarin Sodium) 2 Mg Tablet 2 Mg PO DAILY Clonidine Hcl 0.1 Mg Tablet 0.1 Mg PO TID Accupril (Quinapril Hcl) 40 Mg Tablet 40 Mg PO QHS Metoprolol Tartrate 50 Mg Tablet 50 Mg PO BID Exam Vital Signs Vital Signs Date Time Temp Pulse Resp B/P (MAP) Pulse Ox O2 Delivery O2 Flow Rate FiO2 03/10/18 10:47 98.3 69 20 140/76 (97) 96 Room Air General Appearance: Alert, Oriented X3, Cooperative, No acute distress HEENT: Atraumatic, PERRLA, EOMI (mucous membranes mildly dry) Respiratory: Clear to auscultation, Normal air movement Heart: Regular rate, No murmurs Abdominal: Normal bowel sounds, Soft (, nondistended, negative McBurney and Napoles tenderness, abdominal muscles mildly tender) Extremities: No clubbing, No cyanosis, No edema Neuro: Normal speech, Strength at 5/5 X4 ext, Normal tone, Sensation intact, Cranial nerves 3-12 NL Psych/Mental Status: Mental status NL, Mood NL Assessment/Plan Assessment/Plan Recurrent N/V of questionable etiology- apparently resolved with Zofran 4 mg 1 Hypovolemia with hypokalemia/hypomagnesemia- improved with gentle hydration and electrolyte protocol Lactic acidosis- improved today's lactic acid 1.3 Acute kidney injury- improved today BUN 12 creatinine 1.2 Coumadin anticoagulation with subtherapeutic INR Report of recent fall with possible head injury- although no neuro deficits stat CT head to rule out early subdural hemorrhage I discussed treatment options with the patient at length. Although we are able to correct the dehydration and associated electrolyte abnormalities here at [facility] with fluid/electrolyte replacement and antiemetics this treatment approach has been executed several times this past month each time with recurrence of symptoms. Patient is agreeable to transfer to [facility] for specialist evaluation as needed. Dr. Frankel accept the patient to telemetry floor. COURSE Allergies Coded Allergies Type Severity Reaction Last Updated Verified adhesive Allergy Intermediate 01/23/16 No aloe vera Allergy Intermediate 01/23/16 No Laboratory Tests Test 03/09/18 15:40 03/09/18 19:45 03/10/18 06:34 03/10/18 07:32 Urine Collection Type Void Urine Color Yellow Urine Clarity Clear Urine pH 6.5 Urine Specific [place] 1.015 Urine Protein Neg (NEG-TRACE) Urine Glucose (UA) Neg mg/dL (NEG) Urine Ketones (Stick) 40 mg/dL (NEG) Urine Blood Neg (NEG) Urine Nitrite Neg (NEG) Urine Bilirubin Neg (NEG) Urine Urobilinogen Dipstick 0.2 mg/dL (0.2 mg/dL) Urine Leukocyte Esterase Neg (NEG) Urine RBC Occ /HPF (0-2) Urine WBC Occ /HPF (0-4) Urine Squamous Epithelial Cells Few /LPF Urine Transitional Epithelial Cells /LPF Urine Bacteria Few /HPF (0-FEW) Urine Hyaline Casts Few /HPF Urine Mucus Slight /LPF Lactic Acid Level 3.5 mmol/L (0.4-2.0) 2.4 mmol/L (0.4-2.0) 1.3 mmol/L (0.4-2.0) White Blood Count 5.7 x10^3/uL (4.0-11.0) Red Blood Count 4.56 x10^6/uL (3.50-5.40) Hemoglobin 14.2 g/dL (12.0-15.5) Hematocrit 41.9 % (36.0-47.0) Mean Corpuscular Volume 92 fL (79-100) Mean Corpuscular Hemoglobin 31 pg (25-35) Mean Corpuscular Hemoglobin Concent 34 g/dL (31-37) Red Cell Distribution Width 13.0 % (11.5-14.5) Platelet Count 179 x10^3/uL (140-400) Neutrophils (%) (Auto) 58 % (31-73) Lymphocytes (%) (Auto) 28 % (24-48) Monocytes (%) (Auto) 10 % (0-9) Eosinophils (%) (Auto) 3 % (0-3) Basophils (%) (Auto) 1 % (0-3) Neutrophils # (Auto) 3.3 x10^3uL (1.8-7.7) Lymphocytes # (Auto) 1.6 x10^3/uL (1.0-4.8) Monocytes # (Auto) 0.5 x10^3/uL (0.0-1.1) Eosinophils # (Auto) 0.2 x10^3/uL (0.0-0.7) Basophils # (Auto) 0.1 x10^3/uL (0.0-0.2) Sodium Level 143 mmol/L (136-145) Potassium Level 2.9 mmol/L (3.5-5.1) Chloride Level 107 mmol/L (98-107) Carbon Dioxide Level 28 mmol/L (21-32) Anion Gap 8 (6-14) Blood Urea Nitrogen 15 mg/dL (7-20) Creatinine 1.3 mg/dL (0.6-1.0) Estimated GFR (Cockcroft-Gault) 39.6 Glucose Level 94 mg/dL (70-99) Calcium Level 9.8 mg/dL (8.5-10.1) Magnesium Level 1.3 mg/dL (1.8-2.4) Test 03/10/18 12:58 Sodium Level 142 mmol/L (136-145) Potassium Level 3.4 mmol/L (3.5-5.1) Chloride Level 107 mmol/L (98-107) Carbon Dioxide Level 28 mmol/L (21-32) Anion Gap 7 (6-14) Blood Urea Nitrogen 12 mg/dL (7-20) Creatinine 1.2 mg/dL (0.6-1.0) Estimated GFR (Cockcroft-Gault) 43.4 Glucose Level 107 mg/dL (70-99) Calcium Level 9.5 mg/dL (8.5-10.1) Magnesium Level 2.1 mg/dL (1.8-2.4) Current Medications Medications (Trade) Dose Ordered Sig/Galen Route PRN Reason Start Time Stop Time Status Last Admin Dose Admin Sodium Chloride 1,000 ml @ 1,000 mls/hr 1X ONCE IV 03/09/18 14:45 03/09/18 15:44 DC 03/09/18 15:06 Piperacillin Sod/ Tazobactam Sod (Zosyn Per Pharmacy) 1 each PRN DAILY PRN MC SEE COMMENTS 03/09/18 17:30 Ondansetron HCl (Zofran) 4 mg PRN Q4HRS PRN IV NAUSEA/VOMITING 03/09/18 17:30 03/10/18 17:29 Morphine Sulfate (Morphine 2mg Syringe) 2 mg PRN Q2HR PRN IV PAIN 03/09/18 17:30 03/10/18 17:29 Sodium Chloride 1,000 ml @ 100 mls/hr Q10H IV 03/09/18 17:30 03/10/18 17:29 03/10/18 05:30 Piperacillin Sod/ Tazobactam Sod 2.25 gm/Sodium Chloride 50 ml @ 100 mls/hr Q6HRS IV 03/09/18 18:00 03/10/18 12:10 Potassium Chloride (Klor-Con) 40 meq Q2H PO 03/10/18 08:00 03/10/18 10:01 DC 03/10/18 09:51 Magnesium Sulfate 100 ml @ 100 mls/hr Q1H IV 03/10/18 08:30 03/10/18 10:29 DC 03/10/18 09:54 Lactobacillus Rhamnosus (Culturelle) 1 cap BID PO 03/10/18 21:00 Orders Procedure Category Date Status Time Iv Normal Saline PHA 03/09/18 Complete 1,000ml (Iv Sodium 14:45 Lactic Acid LAB 03/09/18 Complete 15:34 Pip/Tazo Per Pharmacy PHA 03/09/18 In Process (Zosyn Per Pharmac 17:30 [place] Order ADT 03/09/18 Transmitted 17:22 Code Status CODE 03/09/18 Transmitted 17:22 Vital Signs, Per PUNEET 03/09/18 In Process Protocol 17:22 Up In Chair With PUNEET 03/09/18 In Process Assistance 17:22 Fall Precautions PUNEET 03/09/18 In Process 17:22 Cbc W Autodiff LAB 03/10/18 Complete 06:00 Basic Metabolic Panel LAB 03/10/18 Complete 06:00 Ondansetron Pf PHA 03/09/18 In Process (Zofran) 17:30 Morphine Sulfate PHA 03/09/18 In Process (Morphine 2mg Syringe) 17:30 Iv Normal Saline PHA 03/09/18 In Process 1,000ml (Iv Sodium 17:30 Piperacillin/Tazobactam PHA 03/09/18 In Process (Zosyn) 18:00 Lactic Acid LAB 03/09/18 Complete 19:40 Admit Orders ADT 03/09/18 Transmitted Apply Mj Stockings PUNEET 03/09/18 In Process And Nahid Wr 19:44 Pneumatic Compression PUNEET 03/09/18 In Process Device 19:44 Pt. On Electrolyte PUNEET 03/10/18 In Process Protocol 07:16 Lactic Acid LAB 03/10/18 Complete 07:16 Potassium Chloride PHA 03/10/18 Complete Tab (Klor-Con) 08:00 Magnesium LAB 03/10/18 Complete 07:46 Magnesium Sulfate 1gm PHA 03/10/18 Complete (Magnesium Sulfate 08:30 Full Liquid Diet DIET 03/10/18 Transmitted Lunch Basic Metabolic Panel LAB 03/10/18 Complete 13:00 Magnesium LAB 03/10/18 Complete 13:00 Lactobacillus PHA 03/10/18 In Process Rhamnosus Gg 21:00 Vital Signs Date Time Temp Pulse Resp B/P (MAP) Pulse Ox O2 Delivery O2 Flow Rate FiO2 03/10/18 10:47 98.3 69 20 140/76 (97) 96 Room Air NICOLASA CISNEROS DO Mar 10, 2018 13:53
--- NOTE | 2018-03-10 15:19 | RAD ---
CT head without intravenous contrast History: Head injury February 09. Worsening nausea and vomiting. Anticoagulated. Comparison: CT head September 14, 2017. Technique: Axial images are obtained of the head from the skull base through the vertex without IV contrast. Exposure: One or more of the following individualized dose reduction techniques were utilized for this examination: 1. Automated exposure control 2. Adjustment of the mA and/or kV according to patient size 3. Use of iterative reconstruction technique Findings: The ventricles are appropriate in size, shape, and location for the patient's age. No obvious intracranial mass, mass-effect, midline shift, hemorrhage or obvious acute infarction is identified. Basilar cisterns are patent. Patchy, nonspecific white matter low-attenuation is seen, probably from chronic microvascular ischemic disease. Bone windows demonstrate no acute calvarial abnormality. The visualized paranasal sinuses appear clear. Impression: 1. No acute intracranial process. 2. Nonspecific white matter changes, probably from chronic microvascular ischemic disease. Electronically signed by: Lupillo Palomares MD (03/10/2018 3:15 PM) [id number]
[2018-03-10 15:20] VITALS: BP 144/72
[2018-03-10] MEDS ORDERED: LACTOBACILLUS RHAMNOSUS GG 1 CAPSULE. PO SCH (21:00)
== END 2018-03-10 17:15 | disposition short-term general hospital (02) | DRG 683 ==
LOC: ER 11:40 → 1 SOUTH 12:22
PROVIDERS: ADMIT Neuromusculoskeletal Medicine & OMM; ATTEND Neuromusculoskeletal Medicine & OMM
DX: N17.0 Acute kidney failure with tubular necrosis (principal); E87.2 Acidosis; E87.6 Hypokalemia; E78.5 Hyperlipidemia, unspecified; F03.90 Unspecified dementia, unspecified severity, without behavioral disturbance, psychotic disturbance, mood disturbance, and anxiety; I11.0 Hypertensive heart disease with heart failure; I25.10 Atherosclerotic heart disease of native coronary artery without angina pectoris; I48.91 Unspecified atrial fibrillation; E86.1 Hypovolemia; E86.0 Dehydration; E83.42 Hypomagnesemia; I50.9 Heart failure, unspecified; J45.909 Unspecified asthma, uncomplicated; Z79.01 Long term (current) use of anticoagulants; Z90.710 Acquired absence of both cervix and uterus; Z95.0 Presence of cardiac pacemaker; Z91.048 Other nonmedicinal substance allergy status; Z90.89 Acquired absence of other organs; Z79.899 Other long term (current) drug therapy; Z91.81 History of falling
CPT/HCPCS: 36415; 70450; 74176; 80048; 80076; 81001; 83605; 83690; 83735; 83880; 84484; 85025; 85610; 93005; 96361; 96374; J2405; J2543; J3475; J7040; 99285-25; J7030

== ENCOUNTER → 2018-09-07 | Outpatient (CLI) | payer MEDICARE, OTHER ==
[~2018-09-07] MED LIST changes: +ALEN70TA6 PO; +CELE200C PO; +DONE5TAB7 PO; +FAMO20TA5 PO; +HYDR-3165 PO; -HYDR-971 PO; +LEVO50TA5 PO; +NITR100C PO; +OMEG-126 PO
--- NOTE | 2018-09-07 12:41 | RAD ---
DATE: 09/07/2018 EXAM: DIGITAL SCREEN BILAT W/CAD HISTORY: Routine screening COMPARISON: 09/04/2017 This study was interpreted with the benefit of Computerized Aided Detection (CAD). Breast Density: SCATTERED The breast parenchyma shows scattered fibroglandular densities. Breast parenchyma level B. FINDINGS: No new or enlarging breast densities are seen. Minimal benign type calcification is again noted. No suspicious microcalcifications have developed. IMPRESSION: Stable mammograms without evidence of malignancy. BI-RADS CATEGORY: 2 BENIGN FINDING(S) RECOMMENDED FOLLOW-UP: 12M 12 MONTH FOLLOW-UP PQRS compliance statement: Patient information was entered into a reminder system with a target due date for the next mammogram. Mammography is a sensitive method for finding small breast cancers, but it does not detect them all and is not a substitute for careful clinical examination. A negative mammogram does not negate a clinically suspicious finding and should not result in delay in biopsying a clinically suspicious abnormality. "Our facility is accredited by the [employer] Mammography Program."
== END | disposition home or self-care (01) ==
LOC: MAMMO 10:36
PROVIDERS: ATTEND Family Medicine
DX: Z12.31 Encounter for screening mammogram for malignant neoplasm of breast (principal)
CPT/HCPCS: 77067

== ENCOUNTER 2019-01-07 14:02 | Inpatient (IN) | payer MEDICARE, OTHER ==
[~2019-01-07] VITALS: Ht 160 cm; Wt 62.1 kg
[2019-01-07] MEDS ORDERED: IV NORMAL SALINE 1,000ML 1,000 ML IV SCH (14:43)
--- NOTE | 2019-01-07 15:18 | RAD ---
SHOULDER 2+V LEFT 01/07/2019 2:43 PM INDICATION: Fall COMPARISON: None available. TECHNIQUE: 3 views of the left shoulder are provided. FINDINGS: Mild inferior subluxation of the humeral head with relation to the glenoid without lulu dislocation. No acute fracture. Bone mineralization is within normal limits. Mild glenohumeral joint space narrowing with marginal osteophytosis compatible with mild osteoarthrosis. Regional soft tissues are within normal limits. There is no soft tissue gas or osseous erosion. Left chest wall cardiac device is partially profiled. IMPRESSION: Mild inferior subluxation of the humeral head with relation to the glenoid without lulu dislocation. Electronically signed by: Elza Black MD (01/07/2019 3:15 PM) [id number]
[2019-01-07 15:54] LABS: BASO % 1 % (0-3); EOS % 0 % (0-3); HEMATOCRIT 44.8 % (36.0-47.0); HEMOGLOBIN 14.8 g/dL (12.0-15.5); LYMPH # 1.1 x10^3/uL (1.0-4.8); LYMPH % 12 % (24-48); MEAN CORPUSCULAR HEMOGLOBIN 31 pg (25-35); MEAN CORPUSCULAR HGB CONC 33 g/dL (31-37); MEAN CORPUSCULAR VOLUME 95 fL (79-100); MONO % 11 % (0-9); NEUT # 6.9 x10^3uL (1.8-7.7); NEUT % 77 % (31-73); PLATELET COUNT 232 x10^3/uL (140-400); RED BLOOD COUNT 4.72 x10^6/uL (3.50-5.40); RED CELL DISTRIBUTION WIDTH 13.3 % (11.5-14.5)
[2019-01-07 16:43] LABS: ALBUMIN 1.7 g/dL (3.4-5.0); CALCIUM 6.5 mg/dL (8.5-10.1); CREATININE 0.6 mg/dL (0.6-1.0); DIRECT BILIRUBIN 0.1 mg/dL (0.0-0.2); GFR 96.4; TOTAL BILIRUBIN 0.6 mg/dL (0.2-1.0); TOTAL PROTEIN 4.7 g/dL (6.4-8.2)
[2019-01-07 16:49] LABS: POTASSIUM 2.5 mmol/L (3.5-5.1)
[2019-01-07] MEDS ORDERED: POTASSIUM CHLORIDE 20 MEQ TABLET.ER. PO ONE (17:00)
[2019-01-07] MEDS: POTASSIUM CHLORIDE 10MEQ 100 ML IV SCH ×2 (17:14→20:00)
--- NOTE | 2019-01-07 17:39 | PHYS DOC ---
Past History Past Medical History: A-Fib, Asthma, CAD, Hypertension Past Surgical History: Hysterectomy, Pacemaker Smoking: Non-smoker Alcohol Use: None Drug Use: None Adult General Chief Complaint Chief Complaint: MECHANICAL FALL HPI HPI Patient is a 78-year-old female who presents from home after reportedly being discharged home from [facility] yesterday. Patient's daughter indicates that she has been in and out of nursing facilities last couple of months and yesterday when discharged home, patient noted to be too weak and was not able to even walk with assistance. Patient's daughter indicates that she is not able to care for her under the circumstances. Patient does complain of pain in her left shoulder and while patient thinks that she fell, patient's daughter states that she did not fall. Daughter indicates that patient has been crawling on the floor as she is not able to get up and move around.[] Review of Systems Review of Systems Constitutional: Denies fever or chills [] Respiratory: Denies cough or shortness of breath [] Cardiovascular: No additional information not addressed in HPI [] GI: Denies abdominal pain, nausea, vomiting, bloody stools or diarrhea [] Musculoskeletal: Complains of left shoulder pain [] Neurologic: Denies headache, focal weakness or sensory changes. Complains of generalized weakness. [] All other systems were reviewed and found to be within normal limits, except as documented in this note. Current Medications Current Medications Current Medications Medications (Trade) Dose Ordered Sig/Galen Start Time Stop Time Status Last Admin Dose Admin Magnesium Sulfate 50 ml @ 25 mls/hr 1X ONCE 01/07/19 17:45 01/07/19 19:44 Potassium Chloride (Klor-Con) 40 meq 1X ONCE 01/07/19 17:00 01/07/19 17:01 DC 01/07/19 17:14 40 MEQ Sodium Chloride 1,000 ml @ 1,000 mls/hr Q1H 01/07/19 14:43 01/07/19 15:42 DC 01/07/19 15:47 1,000 MLS/HR Allergies Allergies Allergies Coded Allergies Type Severity Reaction Last Updated Verified adhesive Allergy Intermediate 01/23/16 No aloe vera Allergy Intermediate 01/23/16 No Physical Exam Physical Exam Constitutional: Well developed, well nourished, no acute distress, non-toxic appearance. [] HENT: Normocephalic, atraumatic, bilateral external ears normal, oropharynx moist, no oral exudates, nose normal. [] Eyes: PERRLA, EOMI, conjunctiva normal, no discharge. [] Neck: Normal range of motion, no tenderness, supple, no stridor. [] Cardiovascular:Heart rate regular rhythm, no murmur [] Lungs & Thorax: Bilateral breath sounds clear to auscultation [] Abdomen: Bowel sounds normal, soft, no tenderness. [] Skin: Warm, dry, no erythema, no rash. [] Extremities: Examination of left shoulder demonstrates tenderness to palpation around the anterior and lateral aspects of the shoulder. Patient has decreased range of motion especially in flexion and abduction due to reported pain. [] Neurologic: Awake and alert, no focal deficits noted. [] Current Patient Data Vital Signs Vital Signs Date Time Temp Pulse Resp B/P (MAP) Pulse Ox O2 Delivery O2 Flow Rate FiO2 01/07/19 17:20 92 18 147/104 (118) 94 Room Air 01/07/19 14:15 99.0 Lab Results Laboratory Tests Test 01/07/19 15:35 01/07/19 16:11 White Blood Count 9.0 x10^3/uL (4.0-11.0) Red Blood Count 4.72 x10^6/uL (3.50-5.40) Hemoglobin 14.8 g/dL (12.0-15.5) Hematocrit 44.8 % (36.0-47.0) Mean Corpuscular Volume 95 fL (79-100) Mean Corpuscular Hemoglobin 31 pg (25-35) Mean Corpuscular Hemoglobin Concent 33 g/dL (31-37) Red Cell Distribution Width 13.3 % (11.5-14.5) Platelet Count 232 x10^3/uL (140-400) Neutrophils (%) (Auto) 77 % (31-73) H Lymphocytes (%) (Auto) 12 % (24-48) L Monocytes (%) (Auto) 11 % (0-9) H Eosinophils (%) (Auto) 0 % (0-3) Basophils (%) (Auto) 1 % (0-3) Neutrophils # (Auto) 6.9 x10^3uL (1.8-7.7) Lymphocytes # (Auto) 1.1 x10^3/uL (1.0-4.8) Monocytes # (Auto) 1.0 x10^3/uL (0.0-1.1) Eosinophils # (Auto) 0.0 x10^3/uL (0.0-0.7) Basophils # (Auto) 0.0 x10^3/uL (0.0-0.2) Sodium Level 144 mmol/L (136-145) Potassium Level 2.5 mmol/L (3.5-5.1) *L Chloride Level 115 mmol/L (98-107) H Carbon Dioxide Level 16 mmol/L (21-32) L Anion Gap 13 (6-14) Blood Urea Nitrogen 19 mg/dL (7-20) Creatinine 0.6 mg/dL (0.6-1.0) Estimated GFR (Cockcroft-Gault) 96.4 Glucose Level 74 mg/dL (70-99) Calcium Level 6.5 mg/dL (8.5-10.1) L Magnesium Level 1.0 mg/dL (1.8-2.4) L Total Bilirubin 0.6 mg/dL (0.2-1.0) Direct Bilirubin 0.1 mg/dL (0.0-0.2) Aspartate Amino Transferase (AST) 21 U/L (15-37) Alanine Aminotransferase (ALT) 17 U/L (14-59) Alkaline Phosphatase 76 U/L (46-116) Total Protein 4.7 g/dL (6.4-8.2) L Albumin 1.7 g/dL (3.4-5.0) L EKG EKG [] Radiology/Procedures Radiology/Procedures [] Course & Med Decision Making Course & Med Decision Making Pertinent Labs and Imaging studies reviewed. (See chart for details) [] Dragon Disclaimer Dragon Disclaimer This electronic medical record was generated, in whole or in part, using a voice recognition dictation system. Departure Departure: Impression: Primary Impression: Hypomagnesemia Additional Impressions: Hypokalemia Generalized weakness Disposition: ADMITTED INPATIENT Admitting Physician: Cristiana Frankel Condition: IMPROVED Referrals: VICK SWANSON MD (PCP) Problem Qualifiers CARMELA MCMAHON Jr. DO Jan 07, 2019 17:39
[2019-01-07] MEDS ORDERED: MAGNESIUM SULFATE 2GM 50 ML IV ONE (17:45)
[2019-01-07] MEDS ORDERED: ONDANSETRON PF 4 MG/2 ML VIAL. IV PRN (17:45)
[2019-01-07] MEDS: IV NORMAL SALINE 1,000ML 1,000 ML IV SCH (17:46)
[2019-01-07 17:58] LABS: BACTERIA,URINE 0 /HPF (0-FEW); BILIRUBIN,URINE NEG (NEG); CLARITY,URINE CLEAR; COLOR,URINE YELLOW; GLUCOSE,URINE NEG (NEG); NITRITE,URINE NEG (NEG); RBC,URINE 0 /HPF (0-2); SQUAMOUS EPITHELIAL CELL,UR OCC /LPF; UROBILINOGEN,URINE 0.2 mg/dL (0.2 mg/dL); WBC,URINE OCC /HPF (0-4)
[2019-01-07 19:49] VITALS: BP 126/79
[2019-01-07 23:26] VITALS: BP 149/84
[2019-01-07] MEDS ORDERED: RIVA20TA2 PO (23:47)
[2019-01-07] MEDS ORDERED: AMLO10TA8 PO (23:47)
[2019-01-08] MEDS: IV NORMAL SALINE 1,000ML 1,000 ML IV SCH (03:13)
[2019-01-08 05:16] VITALS: BP 132/70
[2019-01-08 06:31] LABS: BASO % 1 % (0-3); EOS # 0.1 x10^3/uL (0.0-0.7); EOS % 2 % (0-3); HEMATOCRIT 41.8 % (36.0-47.0); HEMOGLOBIN 13.7 g/dL (12.0-15.5); LYMPH # 1.3 x10^3/uL (1.0-4.8); LYMPH % 19 % (24-48); MEAN CORPUSCULAR HEMOGLOBIN 31 pg (25-35); MEAN CORPUSCULAR HGB CONC 33 g/dL (31-37); MEAN CORPUSCULAR VOLUME 94 fL (79-100); MONO # 0.8 x10^3/uL (0.0-1.1); MONO % 11 % (0-9); NEUT # 4.6 x10^3uL (1.8-7.7); NEUT % 68 % (31-73); PLATELET COUNT 240 x10^3/uL (140-400); RED BLOOD COUNT 4.43 x10^6/uL (3.50-5.40); WHITE BLOOD COUNT 6.8 x10^3/uL (4.0-11.0)
[2019-01-08 06:35] LABS: ALBUMIN 2.7 g/dL (3.4-5.0); ALBUMIN/GLOBULIN RATIO 0.6 (1.0-1.7); CALCIUM 9.4 mg/dL (8.5-10.1); CREATININE 0.9 mg/dL (0.6-1.0); GFR 60.4; MAGNESIUM 1.8 mg/dL (1.8-2.4); POTASSIUM 4.7 mmol/L (3.5-5.1); TOTAL BILIRUBIN 0.8 mg/dL (0.2-1.0); TOTAL PROTEIN 7.1 g/dL (6.4-8.2)
[2019-01-08] MEDS: oxyCODONE/APAP 7.5/325 1 TAB TABLET PO PRN ×2 (10:12→20:56)
[2019-01-08 12:04] VITALS: BP 147/74
--- NOTE | 2019-01-08 12:08 | HP ---
ADMIT DATE: 01/07/2019 ATTENDING PHYSICIAN: Dr. Velásquez CHIEF COMPLAINT: Weakness and fall. HISTORY OF PRESENT ILLNESS: The patient is a 78-year-old female who is very debilitated. She lives at home with her daughter. She is very demented. There is documentation, compliance is an issue. She was admitted through the ED with profound weakness and a fall. There are no obvious long bone fractures, but her pain is in the left shoulder. She is holding her hand. She says is spasming. It is unclear whether she has had a previous stroke and how debilitated she is. In any event, she was admitted with dehydration and hypokalemia. Today, her potassium repeated was up to 4.2 mEq. She is eating solid foods. She is symptomatic with pain. P.r.n. Percocet has been ordered. We can stop the IV fluids. She had a list of medications reviewed. Unfortunately, she does not have the capability to give me any pertinent medical history. Her daughter is not available at this time. PAST MEDICAL HISTORY: Gleaned from the old chart is significant for profound dementia and osteoporosis. She has a permanent pacemaker and she has permanent atrial fibrillation. CURRENT MEDICATIONS: Include Fosamax, amlodipine, Aricept, famotidine, Synthroid, metoprolol b.i.d., omega-3 fish oil, and Xarelto 20 mg p.o. daily. SOCIAL HISTORY: She is a nonsmoker, nondrinker. FAMILY HISTORY: Unobtainable at the current patient's mental status. REVIEW OF SYSTEMS: Significant for her falls and generalized weakness. She denied any nausea. Localized left shoulder pain, which is traumatic in nature. All other systems reviewed and determined to be negative. SOCIAL HISTORY AND FAMILY HISTORY: Unobtainable. PHYSICAL EXAMINATION: GENERAL: When I saw her, this is a pleasant, but demented elderly female. VITAL SIGNS: Initial vital signs in the ED showed a blood pressure 126/79, pulse is 83 and regular. She was afebrile. HEENT: Head is without trauma. Mucous membranes are dry. NECK: Supple. No bruits identified. LUNGS: Shallow respirations. CARDIOVASCULAR: Showed regular heart tones. No obvious gallop. Peripheral pulses are palpable and full. ABDOMEN: Soft, scaphoid, nontender, no organomegaly. Bowel sounds are hypoactive. EXTREMITIES: Showed no cyanosis or edema. The left arm is immobilized, but she cannot move it. The right arm she has an essential tremor that is noticeable. NEUROLOGIC: The patient is fairly confused and not oriented to place or time. PERTINENT LABORATORY DATA: Admission potassium was 2.5 mEq per liter, later repeated today is up to 4.7 mEq per liter. Creatinine 0.9 mg/dL. Hemoglobin 14.8 g/dL with white count of 9000. ASSESSMENT: 1. This 78-year-old female is dehydrated, resulting in profound weakness and falls. 2. Hypokalemia. 3. Hypomagnesemia. 4. Underlying dementia. 5. Permanent atrial fibrillation. 6. History of permanent pacemaker. 7. Chronic anticoagulation. 8. Noncompliance with meds. PLAN: 1. Admit to the inpatient unit. 2. Gentle IV hydration. 3. Serial chemistries. 4. Resume some home meds. 5. Our director of casework department will visit with the patient's daughter to outline adequate safe plan of dismissal. 6. PT, OT recommendations. EZEQUIEL VELÁSQUEZ MD DR: SHANNAN/tavia JOB#: [id number] / [id number] GEORGE Medellin MD
[2019-01-08 15:27] VITALS: BP 121/73
--- NOTE | 2019-01-08 16:34 | RAD ---
ELBOW LEFT 3V, WRIST 3V LEFT 01/08/2019 10:59 AM INDICATION: Pain, fall COMPARISON: None available TECHNIQUE: 3 views of the left wrist and 3 views of left elbow are provided. FINDINGS: Left elbow: There is no acute fracture or dislocation. There is elevation of anterior fat pad. No elevation of the posterior fat pad to suggest definite joint effusion. Bone mineralization is within normal limits. Joint spaces are maintained. Regional soft tissues are within normal limits. There is no soft tissue gas or osseous erosion. Left wrist: There is negative ulnar variance. Mineralization of the triradiate cartilage may represent chondrocalcinosis. Moderate osteoarthrosis of the first carpometacarpal joint. There is no perilunate dislocation. Mild regional soft tissue swelling. IMPRESSION: 1. No acute fracture or dislocation of the left elbow. Elevation of the anterior fat pad without definite joint effusion. 2. No acute fracture or dislocation of the left breast. Mineralization of the triradiate cartilage may represent chondrocalcinosis. 3. Negative ulnar variance. Electronically signed by: Elza Black MD (01/08/2019 4:31 PM) [id number]
--- NOTE | 2019-01-08 18:31 | PDOC ---
Exam Note: Teodoro Note: Please also refer to the separate dictated note~for this date of service dictated separately.~Patient seen individually. Discussed the patient with Nursing staff reviewed the chart.~Reviewed interim history and current functioning. Reviewed vital signs,~Labs/ Radiology~and current medications noted below. Continue current treatment with the changes noted in the dictated addendum note Assessment: Vital Signs/I&O: Vital Signs Date Time Temp Pulse Resp B/P (MAP) Pulse Ox O2 Delivery O2 Flow Rate FiO2 01/08/19 15:27 99.1 83 18 121/73 (89) 97 Room Air I & O 01/07/19 01/07/19 01/08/19 14:59 22:59 06:59 Intake Total 1682 ml 641 ml Output Total 3 ml Balance 1682 ml 638 ml Labs: Laboratory Tests Test 01/08/19 06:00 White Blood Count 6.8 x10^3/uL (4.0-11.0) Red Blood Count 4.43 x10^6/uL (3.50-5.40) Hemoglobin 13.7 g/dL (12.0-15.5) Hematocrit 41.8 % (36.0-47.0) Mean Corpuscular Volume 94 fL (79-100) Mean Corpuscular Hemoglobin 31 pg (25-35) Mean Corpuscular Hemoglobin Concent 33 g/dL (31-37) Red Cell Distribution Width 13.0 % (11.5-14.5) Platelet Count 240 x10^3/uL (140-400) Neutrophils (%) (Auto) 68 % (31-73) Lymphocytes (%) (Auto) 19 % (24-48) L Monocytes (%) (Auto) 11 % (0-9) H Eosinophils (%) (Auto) 2 % (0-3) Basophils (%) (Auto) 1 % (0-3) Neutrophils # (Auto) 4.6 x10^3uL (1.8-7.7) Lymphocytes # (Auto) 1.3 x10^3/uL (1.0-4.8) Monocytes # (Auto) 0.8 x10^3/uL (0.0-1.1) Eosinophils # (Auto) 0.1 x10^3/uL (0.0-0.7) Basophils # (Auto) 0.0 x10^3/uL (0.0-0.2) Sodium Level 140 mmol/L (136-145) Potassium Level 4.7 mmol/L (3.5-5.1) # Chloride Level 108 mmol/L (98-107) H Carbon Dioxide Level 24 mmol/L (21-32) Anion Gap 8 (6-14) Blood Urea Nitrogen 17 mg/dL (7-20) Creatinine 0.9 mg/dL (0.6-1.0) Estimated GFR (Cockcroft-Gault) 60.4 BUN/Creatinine Ratio 19 (6-20) Glucose Level 95 mg/dL (70-99) Calcium Level 9.4 mg/dL (8.5-10.1) # Magnesium Level 1.8 mg/dL (1.8-2.4) Total Bilirubin 0.8 mg/dL (0.2-1.0) Aspartate Amino Transferase (AST) 28 U/L (15-37) Alanine Aminotransferase (ALT) 24 U/L (14-59) Alkaline Phosphatase 111 U/L (46-116) Total Protein 7.1 g/dL (6.4-8.2) Albumin 2.7 g/dL (3.4-5.0) L Albumin/Globulin Ratio 0.6 (1.0-1.7) L Current Medications: Meds: Current Medications Medications (Trade) Dose Ordered Sig/Galen Route PRN Reason Start Time Stop Time Status Last Admin Dose Admin Oxycodone/ Acetaminophen (Percocet 7.5/ 325) 1 tab PRN Q6HRS PRN PO PAIN 01/08/19 10:00 01/08/19 10:12 I have reviewed the current psychotropics carefully including drug interactions. Risk benefit ratio favors no change other than as noted in my dictated progress note. Diagnosis: Problems: (1) Anxiety disorder (2) Dementia, vascular, with delusions (3) Dementia, vascular, with depression (4) Dementia in Alzheimer's disease with depression (5) Dementia in Alzheimer's disease with delusions (6) Impulse control disorder (7) Major depressive disorder, recurrent episode (8) Generalized weakness (9) Hypokalemia SEB SMITH MD Jan 08, 2019 18:31
[2019-01-08 19:36] VITALS: BP 117/73
[2019-01-08] MEDS: FAMOTIDINE 20 MG TABLET PO SCH (20:55)
[2019-01-08] MEDS: METOPROLOL TART IMMED RELEASE 50 MG TABLET PO SCH (20:55)
[2019-01-08 23:14] VITALS: BP 103/62
--- NOTE | 2019-01-08 23:33 | RAD ---
CT brain without contrast HISTORY: Dementia CT scan of brain was done without contrast. Sinuses are clear. There is no skull fracture. There is diffuse atrophy. There is no intracranial hemorrhage or subdural hematoma. Ventricles are normal in size. There is no mass or shift of the midline. There is extensive decreased density in the periventricular white matter. IMPRESSION: 1. Atrophy and chronic white matter changes. 2. No intracranial hemorrhage. PQRS Compliance Statement: One or more of the following individualized dose reduction techniques were utilized for this examination: 1. Automated exposure control 2. Adjustment of the mA and/or kV according to patient size 3. Use of iterative reconstruction technique Electronically signed by: Tone Lutz MD (01/08/2019 11:30 PM) [facility]
[2019-01-09 06:21] VITALS: BP 114/67
[2019-01-09] MEDS: METOPROLOL TART IMMED RELEASE 50 MG TABLET PO SCH ×2 (08:41→21:36)
[2019-01-09] MEDS: FAMOTIDINE 20 MG TABLET PO SCH ×2 (08:42→21:36)
[2019-01-09] MEDS: DONEPEZIL HCL 5 MG TABLET. PO SCH (08:42)
[2019-01-09] MEDS: SERTRALINE 25 MG TABLET. PO SCH (08:42)
[2019-01-09 11:56] VITALS: BP 119/75
--- NOTE | 2019-01-09 14:22 | PN ---
DATE: 01/09/2019 ATTENDING PHYSICIANS: Dr. Frankel and Dr. Velásquez. SUBJECTIVE: Alert, much improved. Pain is controlled. She has no new complaints. OBJECTIVE: VITAL SIGNS: Her blood pressure today is 114/67, pulse is 83 and regular. She is afebrile. HEENT: The head is without trauma. Pupils are reactive. Sclerae nonicteric. The oropharynx is clear. NECK: Supple. LUNGS: Otherwise clear. CARDIOVASCULAR: Showed regular heart tones. No obvious gallops. She has a permanent pacemaker. ABDOMEN: Soft, nontender. Bowel sounds were hypoactive. EXTREMITIES: Shows minimal swelling on the dorsum of the left hand where she was clutching. She still cannot move her left arm, but the pain is much better controlled. She appears pleasantly confused. She is still requiring assistance for ambulation. NEUROLOGIC FINDING: Pleasantly confused with underlying cognitive deficits. Plain films of the left wrist, elbow and shoulder showed no obvious fractures or dislocation. ASSESSMENT: 1. A 78-year-old female with weakness and dehydration. 2. Frequent falls. 3. Hypokalemia, corrected. 4. Hypomagnesemia. 5. Underlying dementia, profound. 6. Permanent atrial fibrillation. 7. History of permanent pacemaker. 8. Chronic anticoagulation. 9. Noncompliance of medication. PLAN: 1. Continue home meds as ordered. 2. Diet as tolerated. 3. Recommendations per physical therapy. 4. Discharge planning. She wants to go home. I suggested earlier this will be tomorrow. EZEQUIEL VELÁSQUEZ MD DR: SHANNAN/tavia JOB#: [id number] / [id number]
[2019-01-09 15:29] VITALS: BP 123/70
[2019-01-09] MEDS: oxyCODONE/APAP 7.5/325 1 TAB TABLET PO PRN (17:00)
--- NOTE | 2019-01-09 19:41 | PDOC ---
Exam Note: Teodoro Note: Please also refer to the separate dictated note~for this date of service dictated separately.~Patient seen individually. Discussed the patient with Nursing staff reviewed the chart.~Reviewed interim history and current functioning. Reviewed vital signs,~Labs/ Radiology~and current medications noted below. Continue current treatment with the changes noted in the dictated addendum note Assessment: Vital Signs/I&O: Vital Signs Date Time Temp Pulse Resp B/P (MAP) Pulse Ox O2 Delivery O2 Flow Rate FiO2 01/09/19 15:29 98.5 61 20 123/70 (87) 96 Room Air I & O 01/08/19 01/08/19 01/09/19 15:00 23:00 07:00 Intake Total 480 ml 530 ml 50 ml Balance 480 ml 530 ml 50 ml Current Medications: Meds: Current Medications Medications (Trade) Dose Ordered Sig/Galen Route PRN Reason Start Time Stop Time Status Last Admin Dose Admin Famotidine (Pepcid) 20 mg BID PO 01/08/19 21:00 01/09/19 08:42 Metoprolol Tartrate (Lopressor) 50 mg BID PO 01/08/19 21:00 01/09/19 08:41 Sertraline HCl (Zoloft) 25 mg DAILY PO 01/09/19 09:00 01/09/19 08:42 Donepezil HCl (Aricept) 5 mg DAILY PO 01/09/19 09:00 01/09/19 08:42 I have reviewed the current psychotropics carefully including drug interactions. Risk benefit ratio favors no change other than as noted in my dictated progress note. Diagnosis: Problems: (1) Dementia in Alzheimer's disease with delusions (2) Dementia in Alzheimer's disease with depression (3) Dementia, vascular, with delusions (4) Dementia, vascular, with depression (5) Major depressive disorder, recurrent episode (6) Impulse control disorder (7) Anxiety disorder (8) Generalized weakness SEB SMITH MD Jan 09, 2019 19:41
[2019-01-09 20:45] VITALS: BP 126/78
[2019-01-09 23:10] VITALS: BP 123/70
[2019-01-10] MEDS: oxyCODONE/APAP 7.5/325 1 TAB TABLET PO PRN (00:44)
--- NOTE | 2019-01-10 04:04 | CONS ---
DATE OF CONSULTATION: 01/08/2019 PSYCHIATRIC CONSULTATION This late entry, 01/08/2019, covers elements not covered in my initial note, 01/08/2019. IDENTIFYING DATA: The patient is a 78-year-old female seen on [facility] for a psychiatric consult requested by Dr. Frankel on account of the patient's confusion, worsening symptoms of depression with suicidal ideation that she might as well not be alive, drop in appetite, failure to thrive. The patient reportedly lives with her daughter on the patient's farm in the daughter's mobile home and concerns had been expressed about the patient's suicide potential worsening symptoms of depression within the context of her dementia. She was admitted through the Emergency Department with profound weakness and a fall. There were no obvious long bone fractures, but pain in the left shoulder persisted. CHIEF COMPLAINT: "Yes, I'm getting forgetful. Anyone who is 80 years old gets that [address]. I don't know about depression. Maybe." HISTORY OF PRESENT ILLNESS: The patient has a history of dementia, Alzheimer's, vascular type. She has been getting increasingly depressed, admits to feeling helpless, hopeless, worthless with drop in her appetite, failure to thrive within the context of her above fall and hypokalemia at admission. No active suicidal or homicidal ideation. No clear history of bipolar disorder. No active psychotic symptoms. PAST PSYCHIATRIC HISTORY: As above. MEDICAL HISTORY: Hypokalemia, osteoporosis. She has a permanent pacemaker consequent to atrial fibrillation. Hypothyroidism. CURRENT PSYCHOTROPICS: She was on Aricept 5 mg a day, but has since been discontinued, which we are restarting it as noted above at 5 mg a day. The patient is also on Fosamax, amlodipine, famotidine, Synthroid, metoprolol, fish oil and Xarelto. FAMILY HISTORY: Noncontributory. SOCIAL HISTORY: No alcohol or drug abuse history is noted. No physical, sexual or elder abuse. She lives in the mobile home of her daughter, which is parked in her 11 acre farm in [place], [place]. MENTAL STATUS EXAMINATION: The patient was seen individually evening of 01/08/2019. She is a thinly built, quite verbal, oriented to herself. 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 Mood is depressed. Affect is mood congruent. She does appear somewhat hopeless. LABORATORY DATA: Reviewed. IMPRESSION: Major neurocognitive disorder, Alzheimer, probably vascular, more likely than Alzheimer's with depression; anxiety disorder, unspecified. Rest as above. RECOMMENDATION: From a psychiatric standpoint, check a CT head if one has not been done in about a year. At the time of this dictation, I have reviewed the CT head, it showed some cortical atrophy, no acute changes. We are particularly concerned about any falls she might have had since she is on Xarelto and could have had an intracranial bleed, but this has turned out to be negative. We will check her B12. Restart Aricept 5 mg a day, start Zoloft 25 mg a day. She is allergic to ADHESIVES and I am unable to use Exelon patch, otherwise I would have preferred that in place of the Aricept. Dr. Frankel, thank you for the opportunity to participate in your patient's care. We will follow up with you. SEB SMITH MD DR: WENDY/tavia JOB#: [id number] / [id number]
[2019-01-10 06:52] VITALS: BP 140/83
[2019-01-10] MEDS: METOPROLOL TART IMMED RELEASE 50 MG TABLET PO SCH ×3 (09:00→21:04)
[2019-01-10 11:00] VITALS: BP 154/95
[2019-01-10] MEDS: SERTRALINE 25 MG TABLET. PO SCH (11:11)
[2019-01-10] MEDS: FAMOTIDINE 20 MG TABLET PO SCH ×2 (11:11→21:04)
[2019-01-10] MEDS: DONEPEZIL HCL 5 MG TABLET. PO SCH (11:13)
--- NOTE | 2019-01-10 12:09 | PN ---
DATE: PSYCHIATRIC PROGRESS NOTE This late entry, 01/09/2019, covers elements not covered in my initial note. SUBJECTIVE: I met with the patient evening of 01/09/2019. Overall, the patient remains somewhat withdrawn, anxious. CT head shows cortical atrophy, B12 not yet returned. TSH unremarkable. She is tolerating the Zoloft that was initiated as an antidepressant. REVIEW OF SYSTEMS: No CV, , pulmonary, eye system symptoms on review. MENTAL STATUS EXAM: The patient is oriented to herself and situation. However, she had most of her supper uneaten and when I have questioned her on this, she said she was going home and she would have the rest of it packed and taken home for her dog. She was somewhat oblivious of the fact that she was in the hospital and certainly staying overnight. Speech coherent, rapid at times. Abstraction fair, computation impaired, language function intact, attention span short. Mood and affect is somewhat anxious, depressed. No active suicidal ideation. LABORATORY DATA: Reviewed. IMPRESSION: Unchanged from initial note. PLAN: No change from initial note. MAN Gali SMITH MD DR: WENDY/tavia JOB#: [id number] / [id number]
--- NOTE | 2019-01-10 12:57 | PN ---
DATE: 01/10/2019 ATTENDING PHYSICIANS: Dr. Frankel and Dr. Velásquez. CHIEF COMPLAINT: Confusion and arm pain. SUBJECTIVE: The patient's left arm is actually functional. She is using it. She is angry today. She is very passive, aggressive and exhibiting some childish behavior. She refused to answer any questions specifically. She wanted to go home, but her daughter wanted us to keep her for monitoring her hand symptoms. She is agreeable to stay. OBJECTIVE: VITAL SIGNS: Her blood pressure today is 140/83 mmHg, temperature is 98.0, pulse is 70 and regular. She is afebrile. HEENT: Head is without trauma. Pupils are reactive. Sclerae are nonicteric. NECK: Supple. LUNGS: Otherwise clear. CARDIOVASCULAR: Shows regular heart tones. No gallop. She has a permanent pacemaker. ABDOMEN: Soft, normoactive bowel sounds. EXTREMITIES: Showed improved swelling of the dorsum of the left hand. She was not using her left arm and hand. Today she is using it to slate picker things and moving it without any difficulty. NEUROLOGIC: She remains confused She is very angry and passive, aggressive at this time. ASSESSMENT: 1. A 78-year-old female with weakness and dehydration, resolved. 2. Frequent falls at home. 3. Hypokalemia, corrected. 4. Underlying dementia, profound. 5. Personality disorder. 6. Permanent atrial fibrillation. 7. Permanent pacemaker. 8. Noncompliance to meds. TREATMENT PLAN: 1. Home meds as ordered. 2. Diet as tolerated. 3. Pain management. 4. Discharge planning for tomorrow. The daughter will take her home tomorrow morning. EZEQUIEL VELÁSQUEZ MD DR: SHANNAN/tavia JOB#: [id number] / [id number]
[2019-01-10 15:00] VITALS: BP 120/74
--- NOTE | 2019-01-10 17:41 | PDOC ---
Exam Note: Teodoro Note: Please also refer to the separate dictated note~for this date of service dictated separately.~Patient seen individually. Discussed the patient with Nursing staff reviewed the chart.~Reviewed interim history and current functioning. Reviewed vital signs,~Labs/ Radiology~and current medications noted below. Continue current treatment with the changes noted in the dictated addendum note Assessment: Vital Signs/I&O: Vital Signs Date Time Temp Pulse Resp B/P (MAP) Pulse Ox O2 Delivery O2 Flow Rate FiO2 01/10/19 15:00 98.3 60 120/74 (89) 97 Room Air 01/10/19 01:44 16 I & O 01/09/19 01/09/19 01/10/19 15:00 23:00 07:00 Intake Total 840 ml 510 ml 25 ml Balance 840 ml 510 ml 25 ml Current Medications: I have reviewed the current psychotropics carefully including drug interactions. Risk benefit ratio favors no change other than as noted in my dictated progress note. Diagnosis: Problems: (1) Dementia in Alzheimer's disease with delusions (2) Dementia in Alzheimer's disease with depression (3) Dementia, vascular, with delusions (4) Dementia, vascular, with depression (5) Major depressive disorder, recurrent episode (6) Impulse control disorder (7) Anxiety disorder SEB SMITH MD Jan 10, 2019 17:41
[2019-01-10 19:33] VITALS: BP 147/80
[2019-01-10 23:24] VITALS: BP 124/67
[2019-01-11 05:40] VITALS: BP 142/83
[2019-01-11 08:35] VITALS: BP 142/83
[2019-01-11] MEDS: METOPROLOL TART IMMED RELEASE 50 MG TABLET PO SCH (08:35)
[2019-01-11] MEDS: DONEPEZIL HCL 5 MG TABLET. PO SCH (08:35)
[2019-01-11] MEDS: FAMOTIDINE 20 MG TABLET PO SCH (08:35)
[2019-01-11] MEDS: SERTRALINE 25 MG TABLET. PO SCH (08:35)
--- NOTE | 2019-01-11 21:03 | DS ---
DATE OF DISCHARGE: 01/11/2019 ATTENDING PHYSICIAN: Dr. Velásquez FINAL DIAGNOSES: 1. Dehydration. 2. Profound weakness with frequent falls. 3. Hypokalemia, corrected. 4. Hypomagnesemia, replaced. 5. Underlying dementia with behavior disturbances. 6. Chronic pain syndrome with component of chronic regional pain syndrome, left arm and shoulder. 7. Permanent atrial fibrillation. 8. History of permanent pacemaker. 9. Chronic anticoagulation, which has been held due to risk-benefit ratio. HOSPITAL COURSE: This is unfortunately a 78-year-old female who is very debilitated. She lives at home with her daughter. She has profound dementia and other multiple medical issues. She really belonged, needs to go to a jail, but because of financial reasons the daughter lives with the mom. She is taking care of her at home. Otherwise, the daughter would be homeless. She has frequent falls. She has vague symptoms. She also is quite demented. She has behavioral issues. She was admitted with dehydration and electrolyte disturbances. PHYSICAL EXAMINATION: Please see the dictated note. PERTINENT LABORATORY AND X-RAY STUDIES: Admission hemoglobin was 14.8 g/dL with white count of 9000. Chemistry panel showed low potassium 2.5 mEq with magnesium and potassium replacement. This improved to 4.7 mEq. Magnesium replaced to 1.8 mEq per liter. Creatinine is 0.9. Sodium was normal at 140 mEq per liter. We did CT her head which showed atrophy and chronic white matter changes, no acute stroke or bleeds identified. We did x-ray her left elbow, wrist. No acute fracture or dislocation identified. No pathology identified. COURSE IN THE HOSPITAL: The patient was admitted. She was started on IV replacement along with potassium and magnesium supplementation. Diet was advanced and pain was controlled. She had alternating and fluctuating mentation. Some day she was pleasant, other day she was very agitated, angry, and did not know how to control her emotions. This patient really needs to belong in a jail, but the daughter insists on taking her home. We offered and she declined. Because of the risk-benefit ratio and the frequent falls, I would not recommend Xarelto at this time given her propensity for falls and complications. Therefore, on the fourth hospital day, she was discharged home. I recommended she can continue her amlodipine, Aricept, Pepcid, Synthroid, metoprolol, and omega-3 fish oil with the weekly Fosamax. For now, I recommended we hold the Xarelto. She should follow up with her primary care physician. Whether or not this will be feasible and whether or not she continues to fall remains to be seen. She was discharged from our hospital in stable condition with explicit directions on followup care to the daughter and primary automobile designer. TOTAL DISCHARGE TIME SPENT: 39 minutes EZEQUIEL VELÁSQUEZ MD DR: SHANNAN/tavia JOB#: [id number] / [id number]
--- NOTE | 2019-01-11 23:39 | PN ---
DATE: 01/11/2019 PSYCHIATRIC PROGRESS NOTE This is a late entry 01/10/2019 covers elements not covered in my initial note 01/10/2019. SUBJECTIVE: I met with the patient evening of 01/10/2019. Overall, the patient remains confused, but is otherwise quite pleasant. She is tolerating her current psychotropics without any side effects. She denies active suicidal ideation as I met with her, but still remains somewhat dysphoric, anxious. REVIEW OF SYSTEMS: Positive for tiredness. No CV, , pulmonary, eye system symptoms on review. Reliability poor. MENTAL STATUS EXAM: Oriented to herself. Insight, judgment, recent and remote memory, attention, concentration, fund of knowledge poor consistent with her diagnosis mentioned in my initial note. PLAN: No change from initial note. The patient will need outpatient psychiatric followup post discharge. MAN Gali SMITH MD DR: WENDY/tavia JOB#: [id number] / [id number]
--- NOTE | 2019-01-18 14:28 | EKG ---
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
== END 2019-01-11 12:05 | disposition home or self-care (01) | DRG 640 ==
LOC: ER 14:02 → 1 SOUTH 18:22
PROVIDERS: ADMIT Internal Medicine; ATTEND Internal Medicine
DX: E86.0 Dehydration (principal); E43 Unspecified severe protein-calorie malnutrition; F33.9 Major depressive disorder, recurrent, unspecified; F01.51 Vascular dementia, unspecified severity, with behavioral disturbance; F02.81 Dementia in other diseases classified elsewhere, unspecified severity, with behavioral disturbance; E87.6 Hypokalemia; J45.909 Unspecified asthma, uncomplicated; I25.10 Atherosclerotic heart disease of native coronary artery without angina pectoris; I10 Essential (primary) hypertension; I48.2 Chronic atrial fibrillation; Z90.710 Acquired absence of both cervix and uterus; Z95.0 Presence of cardiac pacemaker; Z86.73 Personal history of transient ischemic attack (TIA), and cerebral infarction without residual deficits; Z91.14 Patient's other noncompliance with medication regimen; Z79.01 Long term (current) use of anticoagulants; Z91.048 Other nonmedicinal substance allergy status; E83.42 Hypomagnesemia; M81.0 Age-related osteoporosis without current pathological fracture; E03.9 Hypothyroidism, unspecified; F60.9 Personality disorder, unspecified; F41.9 Anxiety disorder, unspecified; F63.9 Impulse disorder, unspecified; G30.9 Alzheimer's disease, unspecified; G89.4 Chronic pain syndrome; R29.6 Repeated falls; R62.7 Adult failure to thrive; Z68.24 Body mass index [BMI] 24.0-24.9, adult
CPT/HCPCS: 36415; 70450; 73030; 73080; 73110; 80048; 80053; 80076; 81001; 82607; 83735; 84443; 85025; 85610; 93005; 96361; 96365; J2405; J3475; J3480; 99285-25; J7030